=== PATIENT | female | born 1995 | race Caucasian/White ===

== ENCOUNTER 2017-05-15 11:16 | Emergency (ER) | payer BC, OTHER ==
[~2017-05-15] VITALS: Ht 167.6 cm; Wt 61.2 kg
[2017-05-15] MEDS ORDERED: ENPRESSE PO (11:49)
--- NOTE | 2017-05-15 11:58 | Emergency Room Report ---
See Addendum History of Present Illness Time Seen by MD Garcia Presenting Problem in Triage Pt arrived: Presenting Problem: Onset of symptoms date/time:/ or onset unknown for: Treatment Prior to Arrival: [employer] Provided by: Sepsis Risk Assessment: Temp: B/P: MAP: Pulse: Resp: Recent fever? Clinical Suspician of Infection? Mental Status: Sepsis Risk: Have you (or family members/close friends) recently traveled outside the [place]? If Yes, where/when: Have you had exposure to infectious disease within the past month? TB? Other? Specify: Source patient, RN notes reviewed Exam Limitations no limitations Comment Pt is a 21 yo WF who is on BCP and for the past 3 weeks has had a cough that was felt to be viral and recently treated with some cough medicine that has helped but over the past 2 to 3 days she has had some low grade fever and diarrhea. Also some stomach cramps but no vomiting . She does not smoke nor drink nor use drugs but is on BC. She has been tachycardic as well Cardiac Chest Pain Chest pain indicative of cardiac No ALLERGIES Coded Allergies: No Known Allergies (05/15/17) Home Medications Reported Medications LEVONORGESTREL-ETHIN ESTRADIOL (Enpresse-28 Tablet) 1 TAB PO DAILY #84 History Medical History Surgical Hx Previous Surgery?Y L ANKLE Review of Systems All Other Systems Reviewed and Negative Constitutional see HPI Cardiovascular see HPI Genitourinary no symptoms reported. Physical Exam Vital Signs Vital Signs Date Time Temp Pulse Resp B/P Pulse O2 O2 Flow FiO2 Ox Delivery Rate 05/15 1304 98.7 96 20 117/72 99 05/15 1130 98.8 128 20 133/88 99 - WBC >12,000 or <4,000 or 10% bands? 2 or more SIRS Criteria Met? B/P:133/88 MAP:103 Creatinine >2.0? UA output<0.5ml/kg/hr for 2 hrs? Platelet count >100,000? Lactate >2.0mmol/1? INR >1.2 or PTT > than 60 sec? Evidence of Organ Dysfunction? Provider documented clinical suspician of infection? N Sepsis Criteria Count: 2 Sepsis Risk: Severe Sepsis Risk General Appearance normal appearance, WD/WN, no apparent distress Ear, Nose, Throat dry mucous membranes Respiratory Status No: respiratory distress. Lung Sounds bilateral: normal breath sounds. 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 No Results/Orders Laboratory Tests 05/15/17 1205: TSH 1.74, Free T4 Index 12.8, Thyroxine (T4) 15.6 H, T3 Uptake 33 05/15/17 1205: Amylase 44, Lipase 265 05/15/17 1205: Sodium 139, Potassium 3.5, Chloride 105, Carbon Dioxide 27, BUN 8, Creatinine 0.9, Estimated Creat Clear 96, Estimated GFR (MDRD) 79, Glucose 88, Calcium 8.9, Total Bilirubin 0.4, AST 24, ALT 28, Alkaline Phosphatase 44 L, Total Protein 8.1, Albumin 3.8, Globulin 4.3 H, Albumin/Globulin Ratio 0.9 L, WBC 6.6, RBC 4.33, Hgb 13.7, Hct 39.9, MCV 92.1, RDW 12.0, Plt Count 269, MPV 7.9, Gran % 81.3 H, Gran # 5.3, Lymphocytes % 12.4, Monocytes % 5.4, Eosinophils % 0.6, Basophils % 0.2, Lymphocytes # 0.8, Monocytes # 0.4, Eosinophils # 0.0, Basophils # 0.0, PUBS MCHC 34.4, MCH 31.7 H 05/15/17 1150: Urine Color DK YELLOW, Urine Appearance SL CLOUDY, Urine pH 7.0, Ur Specific [place] 1.010, Urine Protein TRACE H, Urine Ketones NEGATIVE, Urine Blood 1+ H , Urine Nitrate NEGATIVE, Urine Bilirubin NEGATIVE, Urine Urobilinogen 1.0, Ur Leukocyte Esterase NEGATIVE, Urine RBC OCC, Urine WBC 5-10, Urine Bacteria 4+, Urine Mucus 4+, Urine Glucose NEGATIVE 05/15/17 0600: Urine Color Cancelled, Urine Appearance Cancelled, Urine pH Cancelled, Ur Specific [place] Cancelled, Urine WBC Cancelled, Ur Squamous Epith Cells Cancelled, Urine Bacteria Cancelled Current Medication Orders Sig/Laura Start time Last Medication Dose Route Stop Time Status Admin Ceftriaxone Sodium 1 GM ONCE ONE 05/15 1330 AC Sodium Chloride 50 ML IV 05/15 1359 Ceftriaxone Sodium 0 .STK-MED ONE 05/15 1329 DC .ROUTE Sodium Chloride 100 ML .STK-MED ONE 05/15 1329 DC IV Sodium Chloride 1,000 ML .STK-MED ONE 05/15 1204 DC IV Sodium Chloride 10 ML PRN PRN 05/15 1200 AC IV 05/16 1150 Sodium Chloride 1,000 ML .Q1H1M 05/15 1200 DC 05/15 IV 05/15 1300 1211 Sodium Chloride 10 ML PRN PRN 05/15 1200 AC IV 05/16 1155 Sodium Chloride 1,000 ML .Q1H1M 05/15 1200 DC IV 05/15 1300 Sodium Chloride 10 ML PRN PRN 05/15 1200 AC IV 05/16 1156 Orders Procedure Date/time Status DIARRHEA PANEL, PCR 05/15 1156 Active CULTURE, BLOOD 05/15 1155 Active THYROID PANEL 2 (WITH TSH) 05/15 1153 Complete LIPASE 05/15 1151 Complete AMYLASE 05/15 1151 Complete IV SALINE LOCK 05/15 1150 Active CULTURE, URINE 05/15 1150 Active URINALYSIS/COMPLETE 05/15 1150 Complete URINE 05/15 1150 Complete CBC WITH AUTO DIFF 05/15 1150 Complete CHEM 12 PROFILE 05/15 1150 Complete Departure Departure Time of Disposition 1325 Disposition DC Home or Self Care(routine) Clinical Impression Primary Impression: Cystitis without hematuria Secondary Impressions: Hyperthyroidism Condition STABLE Referrals Luther Schafer MD (Family): 2 Days-Call Office Patient Instructions Acute Cystitis, DI for Acute Cystitis, DI for Hyperthyroidism, DI for Radioactive Iodine for Treating Hyperthyroidism, Hyperthyroidism, Hyperthyroidism (Alternative Therapy), Radioactive Iodine Treatment Additional Instructions Pt being started on Amoxicillin 500 mg TID for UTI and instructed to followup with PCP in 2 to 3 days to recheck urine but to also do other testing to see what the cause of her Hyperthyroidism is. If her Diarrhea Panel is positive for anything, I will call her with those results. Discharge Counseling Counseled pt/family regarding diagnosis, test results, medications/RX, home care, follow up needs Prescriptions Current Visit Scripts Amoxicillin (Amoxicillin 500MG) 500 MG PO TID #30 CAP ED Critical Care Critical Care No If Critical Care minutes are documented, the time involved in the performance of seperately reportable procedures was not counted toward critical care time documented. I directly delivered medical care to this critically ill and/or injured patient. Timely evaluation and treatment was necessary to address the significant organ system(s) dysfunction present in this patient. at 1339
[2017-05-15 12:00] LABS: URINE BILIRUBIN - DIPSTICK NEGATIVE (NEG); URINE BLOOD 1+ (NEG)
[2017-05-15 12:21] LABS: HEMOGLOBIN 13.7 g/dL (12.2-16.2); LYMPH # 0.8 K/mm3 (0.7-4.5); LYMPH % 12.4 % (10-50.0)
[2017-05-15 12:40] LABS: FREE THYROXIN INDEX 12.8 ug/dl (5.93-13.13)
[2017-05-15] MEDS ORDERED: AMOXICOT500 MG PO (13:29)
[2017-05-15 13:56] LABS: AEROMONAS NOT DETECTED (NOT DETECTE); ASTROVIRUS NOT DETECTED (NOT DETECTE); CYCLOSPORA CAYETANENSIS NOT DETECTED (NOT DETECTE); E COLI O157 NOT DETECTED (NOT DETECTE); ENTEROAGGREGATIVE E COLI NOT DETECTED (NOT DETECTE); ENTEROPATHOGENIC E COLI NOT DETECTED (NOT DETECTE); ENTEROTOXIGENIC E COLI NOT DETECTED (NOT DETECTE); NOROVIRUS NOT DETECTED (NOT DETECTE); SAPOVIRUS NOT DETECTED (NOT DETECTE); SHIGA-LIKE TOXIN PROD. E COLI NOT DETECTED (NOT DETECTE); SHIGELLA/ENTEROINVASIVE E COLI NOT DETECTED (NOT DETECTE); VIBRIO CHOLERAE NOT DETECTED (NOT DETECTE)
[2017-05-15 15:30] VITALS: BP 108/63
--- OUTSIDE RECORDS SUMMARY | 2017-05-16 03:41 | External Medical Summary Rpt | CCD ---
Author Author , DIAZ Organization DIAZ Address Unknown Phone [email or web address] Providers Care Relationship Advisor Name Role Phone ANESTHESIA Unavailable [facility]available [facility], Unavailable Unavailable [facility] CHAVA BRE, CHAVA Unavailable Unavailable [facility] Unavailable Unavailable [facility], Unavailable Unavailable [id number], Unavailable Unavailable [id number] Unavailable Unavailable [facility] Unavailable Unavailable DUDEE CORBIN, DUDEE CORBIN Unavailable Unavailable DUDEE CORBIN, DUDEE CORBIN Unavailable Unavailable DUDEE JITANDER S, Unavailable Unavailable DUDEE, JITANDER S Alla PENG, GINETTE G Unavailable Unavailable T MACEY LOPEZ Unavailable Unavailable ALEC NORIEGA Unavailable Unavailable [facility] Unavailable Unavailable [facility] Unavailable Unavailable [facility], [facility] Unavailable Unavailable [facility], [facility] GRABMAYER MASON, Unavailable Unavailable GRABMAYER MASON KINGS MAJANO, Unavailable Unavailable ARIANA YOUNG, Unavailable Unavailable ARIANA KU HODOSBALDO SIRENA, HODDY SIRENA Unavailable Unavailable KATHIE PACK, HODDY SIRENA Unavailable Unavailable MARISELA VÁZQUEZ, Unavailable Unavailable MARISELA VÁZQUEZ [facility] [employer] [facility] Unavailable Unavailable INC, [facility] Unavailable Unavailable [facility], [facility], Unavailable Unavailable [facility] & Unavailable Unavailable [facility] VIPUL KRI, VIPUL KRI Unavailable Unavailable VIPUL KRI, VIPUL KRI Unavailable Unavailable KELLI MATTHEW, Unavailable Unavailable VIPUL, KELLI K LLUVIA CHARLES, LLUVIA Unavailable Unavailable CHARLES LLUVIA CHARLES, LLUVIA Unavailable Unavailable CHARLES LLUVIA, JOHN S, Unavailable Unavailable LLUVIA, JOHN S FREDDY LENNY, Unavailable Unavailable FREDDY LENNY FREDDY LENNY, Unavailable Unavailable FREDDY LENNY FREDDY, LENNY N, Unavailable Unavailable FREDDY, LENNY N [facility] MONTES KIRILL, Unavailable Unavailable MONTES KIRILL MONTES KIRILL, Unavailable Unavailable MONTES KIRILL RIEBEL CHARLES, RIEBEL Unavailable Unavailable CHARLES RIEBEL CHARLES, RIEBEL Unavailable Unavailable CHARLES RIEBEL, JOHN S, Unavailable Unavailable RIEBEL, JOHN S RODES ARMEN, RODES ARMEN Unavailable Unavailable RODES ARMEN, RODES ARMEN Unavailable Unavailable LANE DEBRA, Unavailable Unavailable LANE DEBRA SWEIGART LAC, Unavailable Unavailable SWEIGART LAC SWEIGART LAC, Unavailable Unavailable SWEIGART LAC SAVANAH NANNETTE, SAVANAH NANNETTE Unavailable Unavailable SAVANAH NANNETTE, SAVANAH NANNETTE Unavailable Unavailable [facility], Unavailable Unavailable [facility] Unavailable Unavailable [facility], [facility] # Unavailable Unavailable [id number], [facility] # [id number] [id number], Unavailable Unavailable [id number] SAM BRIDGES, Unavailable Unavailable SAM BRIDGES Purpose Continuity of Care Document - 08-10-2007 through 2016 Problems Code Diagnosis DOS Provider Status K29.50 UNSPECIFIED 11-17-2016 CHRONIC GASTRITIS WITHOUT BLEEDING K59.00 CONSTIPATIO 11-17-2016 N, UNSPECIFIED R10.13 EPIGASTRIC 11-17-2016 PAIN R10.9 UNSPECIFIED 10-21-2016 ABDOMINAL PAIN 56875 GENERALIZED 03-13-2014 [facility] DISORDER PSC 7061 OTHER ACNE 03-06-2014 [facility] PSC 7821 RASH AND 03-06-2014 [facility] OTHER PEDI[facility]ICS NONSPECIFIC PSC SKIN ERUPTION V700 ROUTINE 12-26-2013 [facility] GENERAL [facility] MEDICAL PSC EXAM@HEALTH CARE FACL 58025 OTOGENIC 11-23-2013 [facility] PAIN LAC 460 ACUTE 11-23-2013 [facility] NASOPHARYNG LAC ITIS 5362 PERSISTENT 11-23-2013 [facility] VOMITING LAC 25053 NAUSEA 11-23-2013 [facility] ALONE LAC 4658 ACUTE URIS 10-17-2013 FREDDY OF OTHER LENNY MULTIPLE SITES 7862 COUGH 10-17-2013 FREDDY LENNY 9210 BLACK EYE, 09-12-2013 JYOTI NOT KIRILL OTHERWISE SPECIFIED 3688 OTHER 09-09-2013 FREDDY SPECIFIED LENNY VISUAL DISTURBANCE S 9181 SUPERFICIAL 09-09-2013 FREDDY INJURY OF LENNY CORNEA 9189 OTHER&UNSPE 09-09-2013 FREDDY CIFIED LENNY SUPERFICIAL INJURIES OF EYE 81333 SLOW 07-31-2013 [facility] TRANSIT [facility] CONSTIPATIO [facility] N 56161 ABDOMINAL 07-31-2013 [facility] PAIN, [facility]ED[facility]RICS UNSPECIFIED PSC SITE 7830 ANOREXIA 06-22-2013 RIEBEL CHARLES 83018 ABDOMINAL 06-22-2013 RIEBDIONISIO SOTO PAIN, GENERALIZED 13723 ACUT 05-31-2013 LLUVIA CHARLES SUPPRATV OTITIS MEDIA W/O SPONT RUP EARDRUM 65307 CHILLS 05-31-2013 LLUVIA CHARLES WITHOUT FEVER 29019 OTHER 05-31-2013 LLUVIA CHARLES MALAISE AND FATIGUE 7840 HEADACHE 05-31-2013 LLUVIA CHARLES V0481 NEED 05-17-2013 ANISA SOTO PROPHYLACTI C VACCINATION &INOCULATIO N FLU 72536 SHORTNESS 05-03-2013 [facility] 41272 CHEST PAIN 05-03-2013 [facility] 86738 PRECORDIAL 04-27-2013 LLUVIA CHARLES PAIN 4618 OTHER ACUTE 03-30-2013 LLUVIA CHARLES SINUSITIS 462 ACUTE 03-30-2013 LLUVIA CHARLES PHARYNGITIS 73600 FEVER 03-30-2013 LLUVIA CHARLES UNSPECIFIED 59955 SLOWING OF 03-16-2013 LLUVIA CHARLES URINARY STREAM 6253 DYSMENORRHE 01-17-2013 SAVANAH NANNETTE A 6262 EXCESSIVE 01-17-2013 SAVANAH NANNETTE OR FREQUENT MENSTRUATIO N 6264 IRREGULAR 01-17-2013 SAVANAH NANNETTE MENSTRUAL CYCLE 51749 ONYCHIA AND 01-16-2013 RODES ARMEN PARONYCHIA OF TOE 7038 OTHER 01-16-2013 RODES ARMEN SPECIFIED DISEASE OF NAIL 6898 PAIN IN 01-16-2013 RODES ARMEN SOFT TISSUES OF LIMB 9243 CONTUSION 01-16-2013 RODES ARMEN OF TOE 95736 OTHER CHEST 11-28-2012 [facility] PAIN [facility] 17716 ABDOMINAL 11-28-2012 [facility]IN, [facility] V0389 NEED PROPH 11-21-2012 VIPUL BAZAN VACC AGAINST OTH SPEC VACC V202 ROUTINE 11-21-2012 VIPUL BAZAN INFANT OR CHILD HEALTH CHECK V6545 COUNSELING 11-09-2012 SAVANAH NANNETTE OTHER SEXUALLY TRANSMITTED DISEASES 3671 MYOPIA 09-22-2012 DUDEE CORBIN 7030 INGROWING 06-28-2012 VIPUL BAZAN NAIL 0340 STREPTOCOCC 04-13-2012 LLUVIA ECHEVERRIA SORE THROAT V061 NEED PROPH 11-20-2011 VIPUL SUSUI VAC W/COMB DIPHTH-TETA NUS-PERTUSS VAC 27968 PAIN IN 11-01-2011 [facility] ANKLE AND HOSPITAL FOOT V4589 OTHER 11-01-2011 [facility] OTHER V571 OTHER 11-01-2011 [facility] 6918 OTHER 10-30-2011 [facility] ATOPIC LENNY DERMATITIS AND RELATED CONDITIONS 92644 DIARRHEA 10-30-2011 FREDDY LENNY 66008 OTHER JOINT 09-22-2011 [facility] DERANGEMENT PSC NEC ANKLE AND FOOT 36965 OTHER 09-22-2011 [facility], OF BONE AND PSC CARTILAGE OTHER 48949 UNSPECIFIED 07-03-2011 SAVANAH NANNETTE VAGINITIS AND VULVOVAGINI TIS 23682 ABDOMINAL 07-03-2011 SAVANAH NANNETTE PAIN RIGHT LOWER QUADRANT 67117 ABDOMINAL 07-03-2011 SAVANAH NANNETTE PAIN, LEFT LOWER QUADRANT 8360 TEAR MEDIAL 06-24-2011 [facility] CARTILAGE OR MENISCUS KNEE CURRENT 65731 OTHER SLEEP 06-17-2011 RICHRISTOPHER CHARLES DISTURBANCE S 23123 ACUTE 11-25-2010 [facility] ATOPIC [facility] CONJUNCTIVI PSC TIS 79872 ESOPHAGEAL 11-25-2010 [facility] REFLUX [facility]ED[facility]RICS PSC 32290 UNSPECIFIED 08-21-2010 [facility] ACUTE [facility] NONSUPPURAT PSC KYLE OTITIS MEDIA 46947 OTHER JOINT 08-02-2010 [facility] DERANGEMENT PSC NEC LOWER LEG 4739 UNSPECIFIED 05-27-2010 [facility] SINUSITIS [facility]EDIATRICS PSC 3670 HYPERMETROP 04-15-2010 [place] [address] SUPPRESSION 04-15-2010 DUDEE CORBIN OF BINOCULAR VISION 88321 CONTACT AND 04-15-2010 DUDEE CORBIN ALLERGIC DERMATITIS OF EYELID 04005 MIGRAINE 04-02-2010 [facility] UNSP W/O PEDIATRICS INTRACT W/O PSC STATUS MIGRAINOSUS 98014 OTHER 12-19-2009 [facility] CHRONIC [facility] PAIN PSC 4779 ALLERGIC 11-12-2009 [facility] RHINITIS [facility]ED[facility]RICS CAUSE PSC UNSPECIFIED V059 NEED PROPH 11-12-2009 [facility] VACC&INOCUL PEDIATRICS AT [facility] PSC UNSPEC SINGLE DZ 7242 LUMBAGO 11-04-2009 [facility] [place] [facility] 7245 UNSPECIFIED 11-04-2009 [facility] BACKACHE [facility] 4659 ACUTE URIS 10-09-2009 [facility] OF PEDIATRICS UNSPECIFIED PSC SITE 463 ACUTE 09-18-2009 [facility] TONSILLITIS PEDIATRICS PSC 20487 SPRAIN AND 07-27-2009 [facility] OF N EMERGENCY UNSPECIFIED PHYS INC SITE OF WRIST E9278 OTH 07-27-2009 [facility] OVEREXERT&S N EMERGENCY TRENUOUS&RE PHYS INC PETITIVE MVMNTS/LOAD S 7336 TIETZES 07-03-2009 [facility] DISEASE [facility]ATRICS PSC 79057 OTHER 05-08-2009 [facility] INJURY OF PEDIATRICS OTHER SITES PSC OF TRUNK 4871 INFLUENZA 04-05-2009 [facility] WITH OTHER PEDIATRICS RESPIRATORY PSC MANIFESTATI ONS 87615 HYPERVENTIL 11-28-2008 [facility] ATION PEDIATRICS PSC 6260 ABSENCE OF 11-19-2008 [facility] MENSTRUATIO PEDIATRICS N PSC V054 NEED PROPH 11-02-2008 [facility] VACC&INOCUL PEDIATRICS AT AGAINST PSC VARICELLA 11950 PAIN IN 10-15-2008 [facility] [place] [facility], [facility]THOPAEDIC LOWER LEG S [facility] 14025 EFFUSION OF 10-11-2008 [facility] LOWER LEG [facility] 8449 SPRAIN&STRA 02-29-2008 [facility] IN OF PEDIATRICS UNSPECIFIED PSC SITE OF KNEE&LEG 01917 UNS 10-06-2007 [facility] GASTRITIS&G PEDIATRICS ASTRODUODIT PSC IS W/O MENTION HEMORR 35362 UNSPECIFIED 10-06-2007 [facility] CONSTIPATIO PSC N 6235 LEUKORRHEA 09-16-2007 [facility] NOT [place] INC SPECIFIED INFECTIVE 7010 CIRCUMSCRIB 09-16-2007 [facility] ED [facility]EDI[facility]ICS SCLERODERMA PSC 8441 SPRAIN AND 08-12-2007 J & L STRAIN OF COMPOUNDING MCL OF KNEE INC Medications Na ND Rx Da Fi Fi Am Da Di Ph RX Ph St me C No te ll ll ou ys ag ar # ys at rm s nt no ma ic us Or Da si cy ia de te s n re d CE 68 05 05 0 20 10 WA 70 BA Ac PH 18 -2 -2 .0 L- 79 DG ti AL 00 0- 0- 00 MA 27 ER ve EX 12 20 20 RT 3 IN 20 11 11 BR 1 PH IA 50 AR N 0 MA C MG CY # CA PS 10 UL 04 E 93 CA 37 04 04 1 30 30 WA 88 QU Ac IL 00 -2 -2 .0 L- 17 AC ti OS 00 6- 6- 00 MA 14 KE ve EC 45 20 20 RT 5 NB 50 11 11 US OT 4 PH H C AR AN 20 MA N .6 CY N # MG 10 TA 04 BL 93 ET PA 00 04 04 2 2. 30 WA 70 QU Ac TA 06 -2 -2 50 L- 76 AC ti DA 50 6- 6- 0 MA 13 KE ve Y 27 20 20 RT 1 NB 0. 22 11 11 US 2% 5 PH H AR AN EY MA N E CY N DR # OP S 10 04 93 TA 00 03 03 0 10 10 WA 70 KE[place]NEY Ac TN 00 -0 -0 .0 L- 68 MB ti FL 40 1- 1- 00 MA 78 RI ve U 80 20 20 RT 8 CK 75 08 11 11 5 PH HO MG AR RA MA CE CA CY P PS # UL E 10 04 93 AN 43 01 01 0 15 1 WA 70 OL Ac TI 19 -2 -2 .0 L- 63 IV ti PY 90 0- 0- 00 MA 18 ER ve RI 01 20 20 RT 8 NE 61 11 11 JE -B 5 PH NN EN AR IF ZO MA ER CA CY S IN # E EA [address] 93 OP CA 68 11 11 1 8. 2 WA 70 HO Ac OM 38 -2 -2 00 L- 56 DD ti ET 20 6- 6- 0 MA 40 Y ve KEANREY 04 20 20 RT 9 DA ZI 10 10 10 NE 1 PH D AR M 25 MA CY MG # TA 10 BL 04 ET 93 00 10 10 2 30 30 WA 88 HO Ac 78 -1 -1 .0 L- 16 DD ti 15 1- 1- 00 MA 04 Y ve 07 20 20 RT 4 DA 77 10 10 6 PH D AR M MA CY # 10 04 93 SOLIS 55 09 09 0 9. 30 WA 70 OL Ac MA 11 -0 -0 00 L- 46 IV ti TR 10 1- 6- 0 MA 26 ER ve IP 29 20 20 RT 4 TA 20 10 10 JE N 9 PH NN SOLIS AR IF CC MA ER CY S 50 # MG 10 04 TA 93 BL ET CA 64 09 09 1 30 30 WA 70 OL Ac EV 76 -0 -0 .0 L- 46 IV ti AC 40 1- 6- 00 MA 26 ER ve ID 04 20 20 RT 5 [address] 3 PH NN AR IF 30 MA ER CY S MG # CA 10 PS 04 UL 93 E FL 00 09 09 2 16 30 WA 70 OL Ac UT 05 -0 -0 .0 L- 46 IV ti IC 43 1- 6- 00 MA 26 ER ve 27 20 20 RT 6 ON 10 10 JE E 9 PH NN CA AR IF OP MA ER CY S 50 # MC 10 G 04 SP 93 RA Y 00 09 09 0 30 30 WA 88 OL Ac 78 -0 -0 .0 L- 15 IV ti 15 1- 6- 00 MA 83 ER ve 07 20 20 RT 0 77 10 10 JE 6 PH NN AR IF MA ER CY S # 10 04 93 66 05 05 2 30 15 WA 70 OL Ac 99 -2 -2 .0 L- 34 IV ti 20 0- 0- 00 MA 34 ER ve 23 20 20 RT 6 56 10 10 JE 0 PH NN AR IF MA ER CY S # 10 04 93 FL 00 05 05 2 16 30 WA 70 OL Ac UT 05 -2 -2 .0 L- 34 IV ti IC 43 0- 0- 00 MA 34 ER ve 27 20 20 RT 5 ON 10 10 JE E 9 PH NN CA AR IF OP MA ER CY S 50 # MC 10 G 04 SP 93 RA Y CA 64 04 04 2 30 30 WA 70 OL Ac EV 76 -2 -2 .0 L- 31 IV ti AC 40 8- 8- 00 MA 73 ER ve ID 04 20 20 RT 6 [address] 3 PH NN AR IF 30 MA ER CY S MG # CA 10 PS 04 UL 93 E 59 03 03 0 12 6 WA 70 BA Ac 70 -1 -1 0. L- 26 DG ti 20 0- 1- 00 MA 02 ER ve 80 20 20 0 RT 4 01 10 10 BR 6 PH IA AR N MA C CY # 10 04 93 BE 68 03 03 0 20 6 WA 70 HO Ac NZ 38 -1 -1 .0 L- 26 DD ti ON 20 0- 0- 00 MA 02 Y ve AT 24 20 20 RT 5 DA AT 80 10 10 E 1 PH D 20 AR M 0 MA MG CY # CA PS 10 UL 04 E 93 PA 00 02 02 00 2. 20 WA 70 OL Ac TA 06 -1 -2 50 L- 23 IV ti DA 50 7- 6- 0 MA 19 ER ve Y 27 20 20 RT 0 0. 22 10 10 JE 2% 5 PH NN AR IF EY MA ER E CY S DR OP #4 S 93 RA 00 01 01 00 60 30 WA 70 KE[place]NEY Ac NI 17 -2 -2 .0 L- 19 MB ti TI 24 1- 8- 00 MA 88 RI ve DI 35 20 20 RT 0 CK NE 74 10 10 9 PH HO 15 AR RA 0 MA CE MG CY P TA #4 BL 93 ET HY 51 10 10 00 30 20 WA [address] 67 -0 -2 .0 L- 06 MB ti OC 21 7- 2- 00 MA 88 RI ve OR 29 20 20 RT 7 CK TI 00 09 09 SO 1 PH HO NE AR RA MA CE VA CY P L 0. #4 2% 93 CR EA M LO 00 08 09 00 30 30 CV 52 HO Ac RA 78 -2 -1 .0 S 43 DD ti TA 15 8- 0- 00 PH 51 Y ve DI 07 20 20 AR DA NE 70 09 09 MA 1 CY D 10 M #3 MG 01 6 TA BL ET BE 68 09 09 00 20 6 WA 70 BA Ac NZ 38 -0 -1 .0 L- 02 DG ti ON 20 4- 0- 00 MA 94 ER ve AT 24 20 20 RT 4 AT 80 09 09 BR E 1 PH IA 20 AR N 0 MA C MG CY CA #4 PS 93 UL E 68 04 05 00 60 30 WA 69 HO Ac 04 -2 -0 .0 L- 86 DD ti 70 1- 7- 00 MA 95 Y ve 16 20 20 RT 2 DA 50 09 09 1 PH D AR M MA CY #4 93 FL 00 04 04 00 16 30 WA 69 OL Ac UT 05 -0 -0 .0 L- 84 IV ti IC 43 3- 9- 00 MA 85 ER ve 27 20 20 RT 6 ON 09 09 09 JE E 9 PH NN CA AR IF OP MA ER CY S 50 #4 MC 93 G SP RA Y LO 00 04 04 00 30 30 WA 88 OL Ac RA 78 -0 -0 .0 L- 13 IV ti TA 15 3- 9- 00 MA 24 ER ve DI 07 20 20 RT 2 NE 70 09 09 JE 1 PH NN 10 AR IF MA ER MG CY S TA #4 BL 93 ET TO 00 02 02 00 3. 15 CV 50 DU Ac BR 06 -1 -2 50 S 20 DE ti EX 50 4- 6- 0 PH 18 E ve 64 20 20 AR JI 0. 43 09 09 MA TA 3% 5 CY ND ER EY #3 S E 01 OI 6 NT ME NT 68 04 04 00 40 20 WA 69 No Ac 04 -1 -2 .0 L- 44 t ti 70 7- 4- 00 MA 61 Av ve 16 20 20 RT 2 ai 50 08 08 la 1 PH bl M e 10 -0 49 3 RA 00 03 04 00 60 30 CV 46 No Ac NI 17 -0 -0 .0 S 42 t ti TI 24 6- 7- 00 PH 58 Av ve DI 35 20 20 AR ai NE 74 08 08 MA la 9 CY bl 15 e 0 #3 MG 01 6 TA BL ET PO 62 03 04 00 51 30 CV 46 No Ac LY 17 -0 -0 0. S 42 t ti ET 50 6- 7- 00 PH 59 Av ve HY 44 20 20 0 AR ai LE 21 08 08 MA la NE 5 CY bl e GL #3 YC 01 OL 6 33 50 PO WD 00 02 03 00 30 30 CV 46 No Ac 59 -1 -2 .0 S 15 t ti 15 5- 6- 00 PH 65 Av ve 52 20 20 AR ai 30 08 08 MA la 1 CY bl e #3 01 6 HY 00 02 03 00 30 14 CV [address] 16 -1 -2 .0 S 15 t ti OC 80 5- 6- 00 PH 66 Av ve OR 08 20 20 AR ai TI 03 08 08 MA la SO 1 CY bl NE e #3 2. 01 5% 6 CR EA M 60 01 03 00 60 30 WA 69 No Ac 25 -2 -2 .0 L- 34 t ti 80 3- 5- 00 MA 62 Av ve 28 20 20 RT 7 ai 30 08 08 la 1 PH bl M e 10 -0 49 3 FL 68 01 03 00 2. 7 CV 45 No Ac UC 46 -1 -2 00 S 81 t ti ON 20 9- 5- 0 PH 94 Av ve AZ 10 20 20 AR ai OL 34 08 08 MA la E 0 CY bl 15 e 0 #3 MG 01 6 TA BL ET FL 68 01 03 00 2. 2 CV 45 No Ac UC 46 -0 -2 00 S 69 t ti ON 20 9- 4- 0 PH 82 Av ve AZ 10 20 20 AR ai OL 34 08 08 MA la E 0 CY bl 15 e 0 #3 MG 01 6 TA BL ET Immunization Name Date Rout CVX Reac Dose Comm Prov Is Faci e tion ent ider Refu lity Give sed n IIV3 10-1 141 RIEB No RIEB 6-20 EL EL VACC 13 CHARLES INE SPLI T VIRU CHARLES S 0.5 ML DOSA GE IM USE MCV4 04-2 114 Meni MENK No MENK 2-20 bita E E DE SOUZA 13 occu KRI CWY s CONJ vacc ine VACC admi KRI nist GRPS ered ; ACYW form -135 ulat IM ion USE not spec ifie d. MCV4 04-2 136 Meni MENK No MENK 2-20 bita E E DE SOUZA 13 occu KRI CWY s CONJ vacc ine VACC admi KRI nist GRPS ered ; ACYW form -135 ulat IM ion USE not spec ifie d. TDAP 04-2 115 MENK No MENK 0-20 E E VACC 12 KRI INE 7 YRS/ > IM KRI IIV3 11-1 140 RIEB No RIEB 6-20 EL EL VACC 11 CHARLES PRES ERVA TIVE CHARLES FREE 0.5 ML DOSA GE IM USE 4VHP 04-1 62 OLIV No GEOR V 3-20 ER, GETO VACC 10 LATISHA WN INE IFER PEDI 3 S ATRI DOSE CS PSC SCHE DULE FOR IM USE LAIV 10-0 111 HAMB No GEOR 3 7-20 SHELLEY GETO VACC 09 , WN INE HORA PEDI LIVE CE P ATRI FOR CS PSC INTR ANAS AL USE 4VHP 06-2 62 HAMB No GEOR V 3-20 SHELLEY GETO VACC 09 , WN INE HORA PEDI 3 CE P ATRI DOSE CS PSC SCHE DULE FOR IM USE 4VHP 04-0 62 OLIV No GEOR V 3-20 ER, GETO VACC 09 LATISHA WN INE IFER PEDI 3 S ATRI DOSE CS PSC SCHE DULE FOR IM USE FAWAD 04-0 21 OLIV No GEOR VACC 3-20 ER, GETO INE 09 LATISHA WN LIVE IFER PEDI FOR S ATRI CS SUBC PSC UTAN EOUS USE LAIV 01-2 111 RIEB No GEOR 3 3-20 EL, GETO VACC 09 LATISHA WN INE IFER PEDI LIVE S ATRI FOR CS PSC INTR ANAS AL USE Procedures Procedure DOS Code Location Performer Comment SERVICES 05012 QUACKENBU QUACKENBU PROVIDED 4 SH LENNY LENNY OFFICE OTH/THN REG SCHED HOURS RADEX 40238 [facility] ABDOMEN 1 3 N N [facility] AN[facility]OPOS [facility] HOSPITA TERIOR VIEW IIV3 80168 RIEBEL RIEBEL VACCINE 3 CHARLES CHARLES SPLIT VIRUS 0.5 ML DOSAGE IM USE ECG 07747 [facility] MCALLEN ROUTINE 3 Y Y ECG [facility] W/LEAST 12 LDS TRCG ONLY W/O I&R ECG [address] ROUTINE 3 DEBRA DEBRA ECG W/LEAST 12 LDS I&R ONLY ECHO [address] TTHRC R-T 3 DEBRA DEBRA 2D W/WOM-MOD E COMPL SPEC&[place] [address] LAB S[facility] LAB SELINA FREE 3 [facility] [place] [address] LAB [facility] LAB SELINA THYROID 3 TONG TONG STIMULATI HOLDINGS HOLDINGS NG HORMONE TSH SPMTRY 79642 [facility] LLUVIA W/VC 3 CHARLES CHARLES EXPIRATOR Y MORENA W/WO MXML VOL VNTJ BLOOD 92877 LAB [facility] LAB SELINA COUNT 3 TONG TONG COMPLETE HOLDINGS HOLDINGS AUTO&AUTO DIFRNTL WBC IAADIADOO 07211 LL[facility] LLUVIA 3 CHARLES CHARLES STREPTOCO CCUS GROUP A URNLS DIP 88443 LL[facility]IA LLUVIA 3 CHARLES CHARLES STICK/TAB LET RGNT NON-AUTO W/O MICRSCP EXCISION 05176 RODES ARMEN RODES ARMEN NAIL 3 MATRIX PERMANENT REMOVAL COMPREHEN 97417 [facility] SIVE 3 N N METABOLIC [facility] COMMUNITY PANEL HOSPITA HOSPITA RADIOLOGI 87458 [facility] C EXAM 3 N N CHEST 2 COMMUNITY [facility] VIEWS HOSPITA HOSPITA [place]ONTAL&[place] [address] [facility] LIPASE 3 N N [facility] HOSPITA HOSPITA BLOOD 99317 [facility] COUNT 3 N N COMPLETE [facility] AUTO&AUTO HOSPITA HOSPITA DIFRNTL WBC COLLECTIO 53503 [facility] N VENOUS 3 N N BLOOD [facility] VENIPUN[place] [address] [facility] AMYLASE 3 N N [facility] HOSPITA HOSPITA ECG 41691 MACEY CHOUDHURY ROUTINE 3 GOPAL GOPAL ECG W/LEAST 12 LDS I&R ONLY MCV4 12224 VIPUL KRI VIPUL KRI MENACWY 3 CONJ VACC GRPS ACYW-135 IM USE URNLS DIP 82514 QUACKENBU QUACKENBU 3 SH LENNY SH LENNY STICK/TAB LET RGNT NON-AUTO W/O MICRSCP OPHTH 41000 DUDEE CORBIN DU[facility]E COR[facility] MEDICAL 3 XM&EVAL COMPRHNSV ESTAB PT 1/> FITTING 87446 [facility] COR[facility] DUDEE CORBIN SPECTACLE 3 S XCPT APHAKIA MONOFOCAL DETERMINA 64574 [facility] COR[facility]E [facility] TION 3 REFRACTIV E STATE FRAMES V2020 [facility] COR[facility] PURCHASES 3 1 VISN V2103 DU[facility]E CORBIN DUDEE CORBIN PLANO 3 TO+/-4.00 D SPHER 0.12-2.00 D CYL EA LENS V2784 [facility] COR[facility] POLYCARBO 3 CHLOE OR EQUAL ANY INDEX PER LENS IAADIADOO 75166 VIPUL KRI VIPUL KRI 2 STREPTOCO CCUS GROUP A EXCISION 88695 RODES ARMEN RODES ARMEN NAIL 2 MATRIX PERMANENT REMOVAL IAADIADOO 02754 LLUVIA TEIXEIRA 2 CHARLES CHARLES STREPTOCO CCUS GROUP A AVULSION 07924 HODDY SIRENA HODDY SIRENA NAIL 2 PLATE PARTIAL/C OMPLETE SIMPLE 1 COMPREHEN 57247 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 SIVE 2 Y & Y & METABOLIC BIODIAGNO BIODIAGNO PANEL STICS STICS ANTIBODY 75615 LABORATOR LABORATOR HELICOBAC 2 Y & Y & TER BIODIAGNO BIODIAGNO PYLORI STICS STICS COLLECTIO 72675 CHAVA CHAVA N VENOUS 2 BRE BRE BLOOD VENIPUNCT URE SEDIMENTA 88497 LABORATOR LABORATOR TION RATE 2 Y & Y & RBC BIODIAGNO BIODIAGNO NON-AUTOM STICS STICS ATED THERAPEUT 81073 [place]/> 2 [facility] EACH 15 MIN EXERCISES THERAPEUT 19360 [place] 1/> 2 [facility] EACH 15 MIN EXERCISES THERAPEUT 44583 [place]/> 2 [facility] EACH 15 MIN EXERCISES THERAPEUT 78749 [place] 1/> 2 [facility] EACH 15 MIN EXERCISES THERAPEUT 47075 [place]/> 2 [facility] EACH 15 MIN EXERCISES TDAP 66149 VIPUL KRI VIPUL KRI VACCINE 7 2 YRS/> IM THERAPEUT 55107 [place] IC 2 [facility] S GROUP 2/> INDIVIDUA LS THERAPEUT 58828 [place] IC PX 1/> 2 [facility] 15 MIN EXERCISES THERAPEUT 52361 [place] IC PX 1/> 2 [facility] 15 MIN EXERCISES THERAPEUT 71279 [place] IC PX 1/> 2 [facility] 15 MIN EXERCISES THERAPEUT 66965 [place] IC PX 1/> 2 [facility] 15 MIN EXERCISES THERAPEUT 11480 [place] IC PX 1/> 2 [facility] EACH 15 MIN EXERCISES THERAPEUT 74031 [place] IC PX 1/> 2 [facility] EACH 15 MIN EXERCISES THERAPEUT 58883 [place] IC PX 1/> 2 [facility] EACH 15 MIN EXERCISES THERAPEUT 28417 [place] IC PX 1/> 2 [facility] EACH 15 MIN EXERCISES PHYSICAL 23883 [place] THERAPY [address] [facility] N ANES OPEN 16227 ANESTHESI GRABMAYER PROC 2 A [employer] ASSOCIATE LOWER S, PSC LEG/ANKLE /FOOT NOS RADEX 74371 NEW AVERION-M FOOT 2 [facility] [place] MINIMUM 3 PSC VIEWS SMR PRIM 83630 SAVANAH NANNETTE SAVANAH NANNETTE SRC WET 1 [facility] NFCT AGT CRTCHS E0114 eXelateOGeoMe UNDARM 1 OTH THAN WOOD PAIR PAD TIP&HNDGR IP LIPID 32499 LABORATOR LABORATOR PANEL 1 Y & Y & BIODIAGNO BIODIAGNO STICS STICS LIPOPROTE 02291 LABORATOR LABORATOR IN DIRECT 1 Y & Y & BIODIAGNO BIODIAGNO MEASUREME STICS STICS NT LDL CHOLESTER OL BLOOD 46791 LABORATOR LABORATOR COUNT 1 Y & Y & COMPLETE BIODIAGNO BIODIAGNO AUTO&AUTO [place] [address] LABORATOR LABORATOR THYROID 1 Y & Y & STIMULATI BIODIAGNO BIODIAGNO NG STICS STICS HORMONE TSH IIV3 VACC 24854 ANISA LANGE 1 CHARLES SOTO PRESERVAT KYLE FREE 0.5 [place] [address] LABORATOR LABORATOR FREE 1 Y & Y & THYROXINE BIODIAGNO BIODIAGNO STICS STICS SERVICES 43053 ANISA LANGE PROVIDED 1 CHARLES SOTO OFFICE OTH/THN REG SCHED HOURS IAADIADOO 41178 ANISA LANGE 1 CHARLES CHALRES STREPTOCO CCUS GROUP A IAADIADOO 16400 RONI LARSEN 1 N BRE [facility] PEDIATRIC CCUS S PSC GROUP A SERVICES 21251 [facility] KINGS PROVIDED 1 N HOR OFFICE PEDIATRIC OTH/THN S PSC REG SCHED HOURS IAADIADOO 32177 [facility] VIPUL KRI 0 N [facility] PEDIATRIC CCUS S PSC GROUP A FRAMES V2020 [facility] PURCHASES 0 DETERMINA 21577 [facility] TION 0 REFRACTIV E STATE OPHTH 38216 [facility] MEDICAL 0 XM&EVAL COMPRHNSV ESTAB PT 1/> SENSORMOT 63378 [facility] OR XM 0 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 DEVIJ W/I&R SPX RX&FITG 30472 [facility] C-LENS 0 SUPVJ CRNL LENS OU XCPT APHK SPHERE V2100 [facility] SINGLE 0 VISION PLANO +/- 4.00 PER LENS SEDIMENTA 72763 [facility] TION RATE 0 [facility] RBC AUTOMATED BLOOD 17239 [facility] COUNT 0 [facility] COMPLETE AUTO&AUTO DIFRNTL WBC ANTIBODY 09892 [facility] HELICOBAC 0 JAMAL BERRY [facility] 53826 [facility] SIVE 0 [facility] METABOLIC PANEL 4VHPV 68806 [facility] LLUVIA, VACCINE 3 0 N JOHN DOSE PEDIATRIC S SCHEDULE S PSC FOR IM USE RADEX 30600 [facility] PENG SPINE 0 RADIOLOGY T THORACIC 2 VIEWS IAADIADOO 64140 [facility] KATHIE, 0 N MARISELA Huerta [facility] PEDIATRIC CCUS S PSC GROUP A IAADIADOO [address] [facility] KINGS, 0 N ARIANA P [facility] CCUS S PSC GROUP A RADEX 48004 [place] WRIST 9 [facility] MINIMUM 3 VIEWS APPLICATI 54728 CELSA STEEN ON SHORT 9 [facility] SPLINT FOREARM-H AND STATIC UPPER [id number] CELSA STEEN LIMB 9 [facility] NOT OTHERWISE SPECIFIED SPMTRY 51975 RONI KU, W/VC 9 N ARIANA P EXPIRATOR PEDIATRIC Y MORENA S PSC W/WO MXML VOL VNTJ LAIV3 00950 RONI DE LA CRUZRICK, VACCINE 9 N ARIANA P LIVE FOR PEDIATRIC INTRANASA S PSC L USE IAADIADOO 47790 CHRISTIANCarlos Alberto VÁZQUEZ, 9 Silver Huerta INFLUENZA PEDIATRIC S PSC SERVICES 20129 CHRISTIANCarlos Alberto VÁZQUEZ, PROVIDED 9 Silver Huerta OFFICE PEDIATRIC OTH/THN S PSC REG SCHED HOURS IAADIADOO 86813 CHRISTIANCarlos Alberto VÁZQUEZ, 9 Silver Huerta [facility] S PSC GROUP A IAADIADOO 70841 [facility], Rita Huerta [facility] S PSC GROUP A 4VHPV 51476 CHRISTIANCarlos Alberto KU, VACCINE 3 9 N ARIANA P DOSE PEDIATRIC SCHEDULE S PSC FOR IM USE URNLS DIP 86482 [facility] LANGE, 9 N JOHN STICK/TAB PEDIATRIC S LET RGNT S PSC NON-AUTO W/O MICRSCP FAWAD 11147 CHRISTIANCarlos Alberto LLUVIA, VACCINE 9 N JOHN LIVE FOR PEDIATRIC S SUBCUTANE S PSC OUS USE 4VHPV 93631 [facility] LLUVIA, VACCINE 3 9 N JOHN DOSE PEDIATRIC S SCHEDULE S PSC FOR IM USE MRI ANY 99351 [facility] JT LOWER 9 N N EXTREM [facility] W/O [facility] CONTRAST MATRL RADIOLOGI 87596 [facility] C 9 N N EXAMINATI [facility] ON KNEE 3 HOSPITAL HOSPITAL VIEWS E-STIM [id number] CELSA STEEN 1/> AREAS 9 [facility] WND CARE PART TX PLAN THERAPEUT 61208 CELSA STEEN IC PX 1/> 9 [facility] EACH 15 MIN EXERCISES E-STIM G0283 CELSA STEEN /> AREAS 9 [facility] WND CARE PART TX PLAN PHYSICAL 25456 CELSA STEEN THERAPY 9 [facility] N THERAPEUT 49956 CELSA STENE IC PX 1/> 9 [facility] EACH 15 MIN EXERCISES FRAMES V2020 CAROL MEDINA, PURCHASES 9 JITANDER JITANDER S S SPHERE V2100 CAROL MEDINA, SINGLE 9 JITANDER JITANDER VISION S S PLANO +/- 4.00 PER LENS SENSORMOT 48581 CAROL MEDINA, OR XM 9 JITANDER JITANDER W/GEOPHYSICAL LABORATORY SUPERVISOR S S EDEN OCULAR DEVIJ W/I&R SPX FITTING 32888 CAROL MEDINA SPECTACLE 9 JITANDER JITANDER S XCPT S S APHAKIA MONOFOCAL OPHTH 81533 CAROL MEDINA, MEDICAL 9 JITANDER JITANDER XM&EVAL S S COMPRHNSV ESTAB PT 1/> DETERMINA 33988 CAROL MEDINA, TION 9 JITANDER JITANDER REFRACTIV S S E STATE LAIV3 49434 RONI LANGE, VACCINE 9 N JOHN WELLER FOR PEDIATRIC S INTRANASA S PSC L USE IAADIADOO 54704 CHRISTIANCarlos Alberto ULLOA 9 N SHLENNY [facility]US S PSC GROUP A IAADIADOO 21532 CHRISTIANCarlos Alberto ULLOA 8 N SHLENNY [facility]US S PSC GROUP A CUL BACT 05206 [facility] XCPT 8 [facility] URINE BLOOD/STO OL AEROBIC ISOL IAADIADOO 15660 Elver DAVIS [facility] S CCUS S PSC GROUP A KO L1825 J & L J & L ELASTIC 8 COMPOUNDI COMPOUNDI KNEE CAP NG INC NG INC PREFAB INCLUDES FITTING&A DJ Encounters Encounter Start End Date Code Location Performer Type Date OFFICE 11026 [facility] VIPUL KRI OUTPATIEN 4 4 N T VISIT PEDIATRIC 15 S PSC MINUTES OFFICE 41669 [facility] VIPUL KRI OUTPATIEN 4 4 N T VISIT PEDIATRIC 15 S PSC MINUTES PERIODIC 38381 [facility] PREVENTIV 4 4 N CHERRY E MED EST PEDIATRIC PATIENT S PSC 18-39 YRS OFFICE 99949 SWEIGART SWEIGART OUTPATIEN 4 4 LAC LAC T VISIT 25 MINUTES OFFICE 94722 QUACKENBU QUACKENBU OUTPATIEN 4 4 SH LENNY SH LENNY T VISIT 15 MINUTES OFFICE 73161 RICHARDSO RICHARDSO OUTPATIEN 4 4 N KIRILL N KIRILL T NEW 45 MINUTES OFFICE 66077 [facility] RIEBEL OUTPATIEN 3 3 N CHARLES T VISIT PEDIATRIC 15 S PSC MINUTES OFFICE 38507 RIEBEL RIEBEL OUTPATIEN 3 3 CHARLES CHARLES T VISIT 15 MINUTES HOSPITAL [facility] 22328 [facility] OUTPATIEN 3 3 CHARLES CHARLES T VISIT 15 MINUTES [facility]OSPITAL [facility] 44123 LLUVIA LLUVIA OUTPATIEN 3 3 CHARLES CHARLES T VISIT 15 MINUTES OFFICE 22333 [facility] LLUVIA OUTPATIEN 3 3 CHARLES CHARLES T VISIT 15 MINUTES OFFICE 54211 LLUV[facility] LLUVIA OUTPATIEN 3 3 CHARLES CHARLES T VISIT 15 MINUTES OFFICE 30393 VIPUL SUSUI VIPUL KRI OUTPATIEN 3 3 T VISIT 25 MINUTES OFFICE 67594 SAVANAH NANNETTE SAVANAH NANNETTE OUTPATIEN 3 3 T VISIT 15 MINUTES OFFICE 10667 AIDAOSBALDO PARRADY SIRENA OUTPATIEN 3 3 T VISIT 15 MINUTES HOSPITAL [facility] - 3 3 N [facility] H[facility] EMERGENCY 06048 [facility] 3 3 N [facility] T VISIT HOSPITA HIGH/URGE NT SEVERITY EMERGENCY 70116 MACEY CHOUDHURY DEPT 3 3 GOPAL GOPAL VISIT HIGH SEVERITY& THREAT FUN PERIODIC 90021 VIPUL KRI VIPUL KRI PREVENTIV 3 3 E MED EST PATIENT OFFICE 55222 SAVANAH NANNETTE SAVANAH NANNETTE OUTPATIEN 3 3 T VISIT 25 MINUTES OFFICE 96685 QUACKENBU QUACKENBU OUTPATIEN 3 3 SH LENNY SH LENNY T VISIT 15 MINUTES OFFICE 42948 AIDADY SIRENA PARRADY SIRENA OUTPATIEN 3 3 T VISIT 15 MINUTES OFFICE 20371 VIPUL KRI VIPUL KRI OUTPATIEN 2 2 T VISIT 25 MINUTES OFFICE 74198 RODJOSEFA ARMEN RODES ARMEN OUTPATIEN 2 2 T NEW 10 MINUTES OFFICE 80085 [facility] LLUVIA OUTPATIEN 2 2 CHARLES CHARLES T VISIT 15 MINUTES OFFICE 22464 [facility] LL[facility]IA OUTPATIEN 2 2 CHARLES CHARLES T VISIT 15 MINUTES OFFICE 70117 CHAVA LARSEN OUTPATIEN 2 2 BRE BRE T VISIT 25 MINUTES PERIODIC 58549 VIPUL KRI VIPUL KRI PREVENTIV 2 2 E MED EST PATIENT -17YRS [facility] BOARABELLAON - 2 2 [facility] T OFFICE 49284 QUACKENBU QUACKENBU OUTPATIEN 2 2 SH LENNY SH LENNY T VISIT 15 MINUTES HOSPITAL [place] - 2 2 [facility] OFF[facility] 54294 SAVANAH NANNETTE SAVANAH NANNETTE OUTPATIEN 1 1 T NEW 30 MINUTES OFFICE 74628 ANISA LANGE OUTPATIEN 1 1 CHARLES CHARLES T VISIT 15 MINUTES OFFICE 07891 [facility] CHAVA OUTPATIEN 1 1 N BRE T VISIT PEDIATRIC 15 S PSC MINUTES OFFICE 14306 [facility] QUACKENBU OUTPATIEN 1 1 N SH LENNY T VISIT PEDIATRIC 15 S PSC MINUTES PERIODIC 57861 [facility] QUACKENBU PREVENTIV 1 1 N SH LENNY E MED EST PEDIATRIC PATIENT S PSC OFFICE 60747 [facility] LLUVIA OUTPATIEN 1 1 N CHARLES T VISIT PEDIATRIC 15 S PSC MINUTES OFFICE 92358 [facility] VIPUL SUSUI OUTPATIEN 0 0 N T VISIT PEDIATRIC 15 S PSC MINUTES OFFICE 97243 CHRISTIANCarlos Alberto NIELSENR OUTPATIEN 0 0 N CHARLES T VISIT PEDIATRIC 15 S PSC MINUTES OFFICE 64930 [facility] LLUVIA, OUTPATIEN 0 0 N JOHN T VISIT PEDIATRIC S 15 S PSC MINUTES PERIODIC 99475 [facility] LLUVIA, PREVENTIV 0 0 N JOHN E MED EST PEDIATRIC S PATIENT S PSC -YRS [facility] CHRISTIANW - 0 0 N OUTPATIEN [facility] OFFICE 31052 CHRISTIANSHREYA MATTHEW, OUTPATIEN 0 0 N KELLI K T VISIT PEDIATRIC 15 S PSC MINUTES OFFICE 46368 [facility] VÁZQUEZ, OUTPATIEN 0 0 N MARISELA M T VISIT PEDIATRIC 15 S PSC MINUTES OFFICE 76027 [facility] KINGS OUTPATIEN 0 0 N ARIANA P T VISIT PEDIATRIC 15 S PSC MINUTES EMERGENCY 86000 [facility]DR[facility] EMERGENCY T VISIT PHYS INC MODERATE SEVERITY EMERGENCY 90721 [place] 9 9 [facility] HOSPITAL T VISIT LOW/MODER SEVERITY HOSPITAL COMSTOCK - 9 9 [facility] T OFFICE 54282 [facility] KINGS SLAVAPATIEN 9 9 N ARIANA P T VISIT PEDIATRIC 15 S PSC MINUTES OFFICE 10789 [facility] KINGS SLAVAEDWAR 9 9 N ARIANA P T VISIT PEDIATRIC 15 S PSC MINUTES OFFICE 79373 [facility] KATHIE [facility]H [facility] LUISA 9 9 N MARISELA Huerta T VISIT PEDIATRIC 25 S PSC MINUTES OFFICE 66471 [facility] ARTEMIO OUTPATIEN 9 9 N SH, LENNY N T VISIT PEDIATRIC 15 S PSC MINUTES OFFICE 79655 [facility] RUPERT LANGE 9 9 N JOHN Bradshaw VISIT PEDIATRIC S 15 S PSC MINUTES PERIODIC 74268 [facility] LLUVIA PREVENTIV 9 9 N JOHN E MED EST PEDIATRIC S PATIENT S PSC 12-17S OFFICE 25350 [facility] BR[facility]ES 9 9 [place] SAM Sommers ION ORTHOPAED NEW/ESTAB ICS PLC PATIENT 60 MIN HOSPITAL [facility] - 9 9 N [facility] OFFICE 62772 [facility] ARTEMIO OUTPATIEN 9 9 N SH, LENNY N T VISIT PEDIATRIC 15 S PSC MINUTES HOSPITAL [facility] - 9 9 N [facility] HOSPITAL OFFICE 61377 CAROL MEDINA OUTPATIEN 9 9 DARION ORLANDO T VISIT S S 25 MINUTES [facility]ITAL [facility] 9 [facility] COMSTOCK - 9 9 [facility] T OFFICE 92275 RONI LANGE, OUTPATIEN 9 9 N JOHN T VISIT PEDIATRIC S 15 S PSC MINUTES OFFICE 14965 CHRISTIANCarlos Alberto QUACKENBU OUTPATIEN 9 9 N SH, LENNY N T VISIT PEDIATRIC 15 S PSC MINUTES OFFICE 40106 [facility] QUACKENBU OUTPATIEN 8 8 N SH, LENNY N T VISIT PEDIATRIC 15 S PSC MINUTES OFFICE 89081 CHRISTIANEDISON QUACKENBU OUTPATIEN 8 8 N SH, LENNY N T VISIT PEDIATRIC 15 S PSC MINUTES OFFICE 95511 CHRISTIANCarlos Alberto KINGS OUTPATIEN 8 8 N ARIANA P T VISIT PEDIATRIC 15 S PSC MINUTES OFFICE 03714 [facility] LANGE, OUTPATIEN 8 8 N JOHN T VISIT PEDIATRIC S 15 S PSC MINUTES PERIODIC 88356 RONI AUGUSTEKE, PREVENTIV 8 8 N KELLI Pinedo E MED EST PEDIATRIC PATIENT S PSC 12-17YRS OFFICE 62676 RONI AUGUSTEKE, OUTPATIEN 8 8 N KELLI K T VISIT PEDIATRIC 25 S PSC MINUTES OFFICE 46191 CHRISTIANCarlos Alberto LLUVIA, OUTPATIEN 8 8 N JOHN T VISIT PEDIATRIC S 15 S PSC MINUTES OFFICE 40677 CHRISTIANCarlos Alberto LLUVIA, OUTPATIEN 8 8 N JOHN T VISIT PEDIATRIC S 15 S PSC MINUTES OFFICE 67235 RONI LLUVIA, OUTPATIEN 8 8 N JOHN T VISIT PEDIATRIC S 15 S PSC MINUTES OFFICE 20150 CHRISTIANCarlos Alberto VIKKIACKENBU OUTPATIEN 8 8 N SH, LENNY N T VISIT PEDIATRIC 15 S PSC MINUTES
--- OUTSIDE RECORDS SUMMARY | 2017-05-16 03:41 | External Medical Summary Rpt | CCD ---
Author Author , DIAZ Organization DIAZ Address Unknown Phone [email or web address] Care Team Providers Care Rd Manager Name Role Phone ANESTHESIA Unavailable [facility]available [facility], [facility], [facility], Unavailable Unavailable [facility] CHAVA BRE, CHAVA Unavailable Unavailable BRE [facility] Unavailable Unavailable [facility], Unavailable Unavailable [id number], Unavailable Unavailable [id number] Unavailable Unavailable [facility] Unavailable Unavailable DUDEE CORBIN, DUDEE CORBIN Unavailable Unavailable DUDEE CORBIN, DUDEE CORBIN Unavailable Unavailable DUDEE JITANDER S, Unavailable Unavailable DUDEE, JITANDER S Alla PENG, GINETTE G Unavailable Unavailable T MACEY LOPEZ Unavailable Unavailable ALEC NORIEGA Unavailable Unavailable [facility] Unavailable Unavailable [facility] Unavailable [facility]available [facility], [facility]available Unavailable [facility], [facility] GRABMAYER MASON, Unavailable Unavailable GRABMAYER MASON KINGS MAJANO, Unavailable Unavailable ARIANA YOUNG, Unavailable Unavailable ARIANA KU HODOSBALDO SIRENA, HODDY SIRENA Unavailable Unavailable KATHIE PACK, HODDY SIRENA Unavailable Unavailable MARISELA VÁZQUEZ, Unavailable Unavailable MARISELA VÁZQUEZ [employer] [facility] [employer] Unavailable Unavailable INC, [facility] Unavailable Unavailable HOLDINGS, [facility], Unavailable Unavailable [facility] & Unavailable Unavailable [facility]ORY & [...] Unavailable SAVANAH NANNETTE, SAVANAH NANNETTE Unavailable Unavailable [facility], Unavailable Unavailable [facility] Unavailable Unavailable #[id number], [facility] # Unavailable Unavailable [id number], [facility] # [id number] [phone], Unavailable Unavailable [id number] SAM BRIDGES, Unavailable Unavailable SAM BRIDGES Purpose Continuity of Care Document - 08-10-2007 through 2016 Problems Code Diagnosis DOS Provider Status K29.50 UNSPECIFIED 11-17-2016 CHRONIC GASTRITIS WITHOUT BLEEDING K59.00 CONSTIPATIO 11-17-2016 N, UNSPECIFIED R10.13 EPIGASTRIC 11-17-2016 PAIN R10.9 UNSPECIFIED 10-21-2016 ABDOMINAL PAIN 19805 GENERALIZED 03-13-2014 [facility] DISORDER PSC 7061 OTHER ACNE 03-06-2014 [facility] PSC 7821 RASH AND 03-06-2014 [facility] OTHER [facility]EDI[facility] NONSPECIFIC PSC SKIN ERUPTION V700 ROUTINE 12-26-2013 [facility]AL [facility] MEDICAL PSC EXAM@HEALTH CARE FACL 91737 OTOGENIC 11-23-2013 [facility] PAIN LAC 460 ACUTE 11-23-2013 [facility] NASOPHARYNG LAC ITIS 5362 PERSISTENT 11-23-2013 [facility] VOMITING LAC 03731 NAUSEA 11-23-2013 [facility] ALONE LAC 4658 ACUTE URIS 10-17-2013 FR[facility] OF OTHER LENNY MULTIPLE SITES 7862 COUGH 10-17-2013 [facility] LENNY 9210 BLACK EYE, 09-12-2013 JYOTI NOT KIRILL OTHERWISE SPECIFIED 3688 OTHER 09-09-2013 [facility] SPECIFIED LENNY VISUAL DISTURBANCE S 9181 SUPERFICIAL 09-09-2013 [facility] INJURY OF LENNY CORNEA 9189 OTHER&UNSPE 09-09-2013 [facility] CIFIED LENNY SUPERFICIAL INJURIES OF EYE 39100 SLOW 07-31-2013 [facility] TRANSIT [facility] CONSTIPATIO [facility] N 89295 ABDOMINAL 07-31-2013 [facility] PAIN, PEDIATRICS UNSPECIFIED PSC SITE 7830 ANOREXIA 06-22-2013 RIEBEL CHARLES 55634 ABDOMINAL 06-22-2013 RIEBDIONISIO SOOT PAIN, GENERALIZED 87168 ACUT 05-31-2013 [facility] CHARLES SUPPRATV OTITIS MEDIA W/O SPONT RUP EARDRUM 71442 CHILLS 05-31-2013 [facility] CHARLES WITHOUT FEVER 17729 OTHER 05-31-2013 [facility] CHARLES MALAISE AND FATIGUE 7840 HEADACHE 05-31-2013 [facility] CHARLES V0481 NEED 05-17-2013 ANISA SOTO PROPHYLACTI C VACCINATION &INOCULATIO N FLU 91643 SHORTNESS 05-03-2013 [facility] 44063 CHEST PAIN 05-03-2013 [facility] 59462 PRECORDIAL 04-27-2013 [facility] CHARLES PAIN 4618 OTHER ACUTE 03-30-2013 [facility] CHARLES SINUSITIS 462 ACUTE 03-30-2013 [facility] CHARLES PHARYNGITIS 91689 FEVER 03-30-2013 [facility] CHARLES UNSPECIFIED 12805 SLOWING OF 03-16-2013 [facility] CHARLES URINARY STREAM 6253 DYSMENORRHE 01-17-2013 SAVANAH NANNETTE A 6262 EXCESSIVE 01-17-2013 SAVANAH NANNETTE OR FREQUENT MENSTRUATIO N 6264 IRREGULAR 01-17-2013 SAVANAH NANNETTE MENSTRUAL CYCLE 56041 ONYCHIA AND 01-16-2013 RODES ARMEN PARONYCHIA OF TOE 7038 OTHER 01-16-2013 RODES ARMEN SPECIFIED DISEASE OF NAIL 5602 PAIN IN 01-16-2013 RODES ARMEN SOFT TISSUES OF LIMB 9243 CONTUSION 01-16-2013 RODES ARMEN OF TOE 57713 OTHER CHEST 11-28-2012 [place] PAIN [facility] 84685 ABDOMINAL 11-28-2012 [place]IN[facility] V0389 NEED PROPH 11-21-2012 VIPUL BAZAN VACC AGAINST OTH SPEC VACC V202 ROUTINE 11-21-2012 VIPUL BAZAN INFANT OR CHILD HEALTH CHECK V6545 COUNSELING 11-09-2012 SAVANAH NANNETTE OTHER SEXUALLY TRANSMITTED DISEASES 3671 MYOPIA 09-22-2012 DUDEE CORBIN 7030 INGROWING 06-28-2012 VIPUL BAZAN NAIL 0340 STREPTOCOCC 04-13-2012 [facility] ECHEVERRIA SORE THROAT V061 NEED PROPH 11-20-2011 VIPUL SUSUI VAC W/COMB DIPHTH-TETA NUS-PERTUSS VAC 07474 PAIN IN 11-01-2011 [facility] ANKLE AND HOSPITAL FOOT V4589 OTHER 11-01-2011 [facility] OTHER V571 OTHER 11-01-2011 [facility] PHYSICAL [facility] 6918 OTHER 10-30-2011 [facility] ATOPIC LENNY DERMATITIS AND RELATED CONDITIONS 93996 DIARRHEA 10-30-2011 FR[facility] LENNY 08404 OTHER JOINT 09-22-2011 [facility], DERANGEMENT PSC NEC ANKLE AND FOOT 46761 OTHER 09-22-2011 [facility] DISORDERS [facility], OF BONE AND PSC CARTILAGE OTHER 59342 UNSPECIFIED 07-03-2011 SAVANAH NANNETTE VAGINITIS AND VULVOVAGINI TIS 31156 ABDOMINAL 07-03-2011 SAVANAH NANNETTE PAIN RIGHT LOWER QUADRANT 87184 ABDOMINAL 07-03-2011 SAVANAH NANNETTE PAIN, LEFT LOWER QUADRANT 8360 TEAR MEDIAL 06-24-2011 [facility] CARTILAGE OR MENISCUS KNEE CURRENT 79320 OTHER SLEEP 06-17-2011 RICHRISTOPHER CHARLES DISTURBANCE S 39764 ACUTE 11-25-2010 [facility] ATOPIC [facility] CONJUNCTIVI PSC TIS 00402 ESOPHAGEAL 11-25-2010 [facility] REFLUX PEDIATRICS PSC 44652 UNSPECIFIED 08-21-2010 [facility] ACUTE [facility] NONSUPPURAT PSC KYLE OTITIS MEDIA 48330 OTHER JOINT 08-02-2010 [facility] DERANGEMENT PSC NEC LOWER LEG 4739 UNSPECIFIED 05-27-2010 [facility] SINUSITIS PEDIATRICS PSC 3670 HYPERMETROP 04-15-2010 [place] [address] SUPPRESSION 04-15-2010 DUDEE CORBIN OF BINOCULAR VISION 01175 CONTACT AND 04-15-2010 DUDEE CORBIN ALLERGIC DERMATITIS OF EYELID 98216 MIGRAINE 04-02-2010 [facility] UNSP W/O PEDIATRICS INTRACT W/O PSC STATUS MIGRAINOSUS 89406 OTHER 12-19-2009 [facility] CHRONIC [facility]ED[facility]RICS PAIN PSC 4779 ALLERGIC 11-12-2009 [facility] RHINITIS PEDIATRICS CAUSE PSC UNSPECIFIED V059 NEED PROPH 11-12-2009 [place] VACC&INOCUL PEDIATRICS AT [facility] PSC UNSPEC SINGLE DZ 7242 LUMBAGO 11-04-2009 [facility] [place] [facility] 7245 UNSPECIFIED 11-04-2009 [facility] BACKACHE [facility] 4659 ACUTE URIS 10-09-2009 [facility] OF PEDIATRICS UNSPECIFIED PSC SITE 463 ACUTE 09-18-2009 [facility] TONSILLITIS PEDIATRICS PSC 08315 SPRAIN AND 07-27-2009 [facility] STRAIN OF N EMERGENCY UNSPECIFIED PHYS INC SITE OF WRIST E9278 OTH 07-27-2009 [facility] OVEREXERT&S N EMERGENCY TRENUOUS&RE PHYS INC PETITIVE MVMNTS/LOAD S 7336 TIETZES 07-03-2009 [facility] DISEASE [facility]EDIATRICS PSC 61050 OTHER 05-08-2009 [facility] INJURY OF PEDIATRICS OTHER SITES PSC OF TRUNK 4871 INFLUENZA 04-05-2009 [facility] WITH OTHER PEDIATRICS RESPIRATORY PSC MANIFESTATI ONS 43716 HYPERVENTIL 11-28-2008 [facility] ATION PEDIATRICS PSC 6260 ABSENCE OF 11-19-2008 [facility] MENSTRUATIO PEDIATRICS N PSC V054 NEED PROPH 11-02-2008 [facility] VACC&INOCUL PEDIATRICS AT AGAINST PSC VARICELLA 74712 PAIN IN 10-15-2008 [facility] [place] JOINT, ORTHOPAEDIC LOWER LEG S PLC 98121 EFFUSION OF 10-11-2008 [facility] LOWER LEG [facility] 8449 SPRAIN&STRA 02-29-2008 [facility] IN OF PEDIATRICS UNSPECIFIED PSC SITE OF KNEE&LEG 53864 UNS 10-06-2007 [facility] GASTRITIS&G PEDIATRICS ASTRODUODIT PSC IS W/O MENTION HEMORR 90518 UNSPECIFIED 10-06-2007 [facility] CONSTIPATIO PSC N 6235 LEUKORRHEA 09-16-2007 [facility] NOT [place] [facility] SPECIFIED INFECTIVE 7010 CIRCUMSCRIB 09-16-2007 [facility] ED [facility]EDI[facility]ICS SCLERODERMA PSC 8441 SPRAIN AND [...] CA PS 10 UL 04 E 93 OR 37 04 04 1 30 30 WA [...] 0 10 10 WA 70 KEARNEY Ac ID [id number] .0 L- 68 MB [...] EA [address] 93 OP OR 68 11 11 1 8. 2 WA 70 HO Ac OM 38 -2 -2 00 L- 56 DD ti ET 20 6- 6- 0 MA 40 Y ve KEARNEY 04 20 20 RT 9 DA ZI [...] MG 10 04 TA 93 BL ET OR 64 09 09 1 30 30 WA [...] 10 10 JE E 9 PH NN OR AR IF OP MA ER CY S [...] 10 10 JE E 9 PH NN OR AR IF OP MA ER CY S 50 # MC 10 G 04 SP 93 RA Y OR 64 04 04 2 30 30 WA [...] 09 09 JE E 9 PH NN OR AR IF OP MA ER CY S [...] Procedure DOS Code Location Performer Comment SERVICES 18080 QUACKENBU QUACKENBU PROVIDED 4 SH LENNY LENNY OFFICE OTH/THN REG SCHED HOURS RADEX 41050 [facility] ABDOMEN 1 3 N N [facility] ANTEROPOS HOSPITA HOSPITA TERIOR VIEW IIV3 54432 RIEBEL RIEBEL VACCINE 3 CHARLES CHARLES SPLIT VIRUS 0.5 ML DOSAGE IM USE ECG 72428 [facility] ROUTINE 3 Y Y ECG [facility] W/LEAST 12 LDS TRCG ONLY W/O I&R ECG [address] ROUTINE 3 DEBRA DEBRA ECG W/LEAST 12 LDS I&R ONLY ECHO [address] TTHRC R-T 3 DEBRA DEBRA 2D W/WOM-MOD E COMPL SPEC&[place] [address] LAB SELINA LAB SELINA FREE 3 TONG [place] [address] LAB SELINA LAB SELINA THYROID 3 TONG TONG STIMULATI HOLDINGS HOLDINGS NG HORMONE TSH SPMTRY 90214 [facility] W/VC 3 CHARLES CHARLES EXPIRATOR Y MORENA W/WO MXML VOL VNTJ BLOOD 41278 LAB SELINA LAB SELINA COUNT 3 TONG TONG COMPLETE HOLDINGS HOLDINGS AUTO&AUTO DIFRNTL WBC IAADIADOO 34771 [facility] LL[facility] 3 CHARLES CHARLES STREPTOCO CCUS GROUP A URNLS DIP 16323 [facility] LLUVIA 3 CHARLES CHARLES STICK/TAB LET RGNT NON-AUTO W/O MICRSCP EXCISION 99909 RODES ARMEN RODES ARMEN NAIL 3 MATRIX PERMANENT REMOVAL COMPREHEN 10262 [facility] SIVE 3 N N METABOLIC [facility] COMMUNITY PANEL HOSPITA HOSPITA RADIOLOGI 81547 [facility] C EXAM 3 N N CHEST 2 COMMUNITY [facility] VIEWS HOSPITA HOSPITA FRONTAL&[place] [address] [facility] LIPASE 3 N N [facility] HOSPITA HOSPITA BLOOD 83823 [facility] COUNT 3 N N COMPLETE [facility] AUTO&AUTO HOSPITA HOSPITA DIFRNTL WBC COLLECTIO 08741 [facility] N VENOUS 3 N N BLOOD [facility] VENIPUNCT [place] [address] [facility] AMYLASE 3 N N [facility] HOSPITA HOSPITA ECG 37678 MACEY CHOUDHURY ROUTINE 3 GOPAL GOPAL ECG W/LEAST 12 LDS I&R ONLY MCV4 98871 VIPUL KRI VIPUL KRI MENACWY 3 CONJ VACC GRPS ACYW-135 IM USE URNLS DIP 85940 QUACKENBU QUACKENBU 3 SH LENNY SH LENNY STICK/TAB LET RGNT NON-AUTO W/O MICRSCP OPHTH 66295 DUDEE CORBIN DUDEE CORBIN MEDICAL 3 XM&EVAL COMPRHNSV ESTAB PT 1/> FITTING 10159 DUDEE CORBIN DUDEE CORBIN SPECTACLE 3 S XCPT APHAKIA MONOFOCAL DETERMINA 75482 DUDEE CORBIN DUDEE CORBIN TION 3 REFRACTIV E STATE FRAMES V2020 DUDEE CORBIN DUDEE CORBIN PURCHASES 3 1 VISN V2103 DUDEE CORBIN DUDEE CORBIN PLANO 3 TO+/-4.00 D SPHER 0.12-2.00 D CYL EA LENS V2784 DUDEE CORBIN DUDEE CORBIN POLYCARBO 3 CHLOE OR EQUAL ANY INDEX PER LENS IAADIADOO 45909 VIPUL KRI VIPUL KRI 2 STREPTOCO CCUS GROUP A EXCISION 40729 RODES ARMEN RODES ARMEN NAIL 2 MATRIX PERMANENT REMOVAL IAADIADOO 60654 LL[facility] TEIXEIRA 2 CHARLES CHARLES STREPTOCO CCUS GROUP A AVULSION 38093 HODDY SIRENA HODDY SIRENA NAIL 2 PLATE PARTIAL/C OMPLETE SIMPLE 1 COMPREHEN 21049 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 EACH 15 MIN EXERCISES THERAPEUT 16266 [place] PX 1/> 2 [facility] EACH 15 MIN EXERCISES THERAPEUT 60675 [place] P[place] 1/> 2 [facility] EACH 15 MIN EXERCISES THERAPEUT 27075 [place] 1/> 2 [facility] EACH 15 MIN EXERCISES THERAPEUT 52245 [place] IC PX 1/> 2 [facility] EACH 15 MIN EXERCISES TDAP 83468 VIPUL KRI VIPUL KRI VACCINE 7 2 YRS/> IM THERAPEUT 08785 [place] IC 2 [facility] S GROUP 2/> INDIVIDUA LS THERAPEUT 13609 [place] PX 1/> 2 [facility] EACH 15 MIN EXERCISES THERAPEUT 45816 [place] PX 1/> 2 [facility] EACH 15 MIN EXERCISES THERAPEUT 16408 [place] PX 1/> 2 [facility] EACH 15 MIN EXERCISES THERAPEUT 98604 [place] PX 1/> 2 [facility] EACH 15 MIN EXERCISES THERAPEUT 35209 [place] P[place] 1/> 2 [facility] EACH 15 MIN EXERCISES THERAPEUT 35989 [place] P[place] 1/> 2 [facility] EACH 15 MIN EXERCISES THERAPEUT 96940 [place] P[place] 1/> 2 [facility] EACH 15 MIN EXERCISES THERAPEUT 30388 [place] IC PX 1/> 2 [facility] EACH 15 MIN EXERCISES PHYSICAL 42082 [place] THERAPY [address] [facility] N ANES OPEN 26924 ANESTHESI GRABMAYER PROC 2 A [place]ON BONES ASSOCIATE LOWER S, PSC LEG/ANKLE /FOOT NOS RADEX 52326 NEW AVERION-M FOOT 2 [facility] COMPLETE CLINIC [place] MINIMUM 3 PSC VIEWS SMR PRIM 69803 SAVANAH NANNETTE SAVANAH NANNETTE SRC WET [address] [facility] NFCT AGT CRTCHS E0114 [employer] UNDARM 1 OTH THAN WOOD PAIR PAD TIP&HNDGR IP LIPID 62261 LABORATOR LABORATOR PANEL 1 Y & Y & BIODIAGNO BIODIAGNO STICS STICS LIPOPROTE 32500 LABORATOR LABORATOR IN DIRECT 1 Y & Y & BIODIAGNO BIODIAGNO MEASUREME STICS STICS NT LDL CHOLESTER OL BLOOD 31552 LABORATOR LABORATOR COUNT 1 Y & Y & COMPLETE BIODIAGNO BIODIAGNO AUTO&AUTO [place] [address] LABORATOR LABORATOR THYROID 1 Y & Y & STIMULATI BIODIAGNO BIODIAGNO NG STICS STICS HORMONE TSH IIV3 VACC 71853 ANISA LANGE 1 CHARLES SOTO PRESERVAT KYLE FREE 0.5 [place] [address] LABORATOR LABORATOR FREE 1 Y & Y & THYROXINE BIODIAGNO BIODIAGNO STICS STICS SERVICES 60585 ANISA LANGE PROVIDED 1 CHARLES SOTO OFFICE OTH/THN REG SCHED HOURS IAADIADOO 09926 ANISA LANGE 1 CHARLES CHARLES STREPTOCO CCUS GROUP A IAADIADOO 71958 RONI LARSEN 1 N BRE STREPTOCO PEDIATRIC CCUS S PSC GROUP A SERVICES 50636 [facility] KINGS PROVIDED 1 N HOR OFFICE PEDIATRIC OTH/THN S PSC REG SCHED HOURS IAADIADOO 61158 [facility] VIPUL KRI 0 N STREPTOCO PEDIATRIC CCUS S PSC GROUP A FRAMES V2020 DUDEE CORBIN DUDEE CORBIN PURCHASES 0 DETERMINA 05447 DUDEE CORBIN DUDEE CORBIN TION 0 REFRACTIV E STATE OPHTH 03604 DUDEE CORBIN DUDEE CORBIN MEDICAL 0 XM&EVAL COMPRHNSV ESTAB PT 1/> SENSORMOT 54836 DUDEE CORBIN DUDEE CORBIN OR XM 0 W/LOOP CUTTER EDEN OCULAR DEVIJ W/I&R SPX RX&FITG 89698 DUDEE CORBIN DUDEE CORBIN C-LENS 0 SUPVJ CRNL LENS OU XCPT APHK SPHERE V2100 DUDEE CORBIN DUDEE CORBIN SINGLE 0 VISION PLANO +/- 4.00 PER LENS SEDIMENTA 96444 [facility] OF TION RATE 0 [facility] RBC AUTOMATED BLOOD 99634 [facility] OF COUNT 0 [facility] COMPLETE AUTO&AUTO DIFRNTL WBC ANTIBODY 00560 [facility] D[facility] HELICOBAC 0 JAMAL BERRY [facility] 90720 [facility] OF SIVE 0 [facility] METABOLIC PANEL 4VHPV 21070 [facility] LLUVIA, VACCINE 3 0 N JOHN DOSE PEDIATRIC S SCHEDULE S PSC FOR IM USE RADEX 64280 [facility] [place] Alla PENG SPINE 0 RADIOLOGY T THORACIC 2 VIEWS IAADIADOO 63104 [facility] KATHIE, 0 N MARISELA Huerta STREPTOCO PEDIATRIC CCUS S PSC GROUP A IAADIADOO 53162 [facility] KINGS, 0 N ARIANA P STREPTOCO PEDIATRIC CCUS S PSC GROUP A RADEX 66568 [place] WRIST 9 [facility] MINIMUM 3 VIEWS APPLICATI 14157 CELSA STEEN ON SHORT 9 [facility] SPLINT FOREARM-H AND STATIC UPPER L3999 CELSA STEEN LIMB 9 [facility] NOT OTHERWISE SPECIFIED SPMTRY 19141 RONI KU, W/VC 9 N ARIANA P EXPIRATOR PEDIATRIC Y MORENA S PSC W/WO MXML VOL VNTJ LAIV3 65454 RONI DE LA CRUZRICK, VACCINE 9 N ARIANA P LIVE FOR PEDIATRIC INTRANASA S PSC L USE IAADIADOO 57108 CHRISTIANCarlos Alberto VÁZQUEZ, 9 Silver Huerta INFLUENZA PEDIATRIC S PSC SERVICES 52165 CHRISTIANCarlos Alberto VÁZQUEZ, PROVIDED 9 Silver uHerta OFFICE PEDIATRIC OTH/THN S PSC REG SCHED HOURS IAADIADOO 03833 CHRISTIANCarlos Alberto VÁZQUEZ, 9 Silver Huerta STREPTOCO PEDIATRIC CCUS S PSC GROUP A IAADIADOO 31600 [facility] VÁZQUEZ, Rita Huerta STREPTOCO PEDIATRIC CCUS S PSC GROUP A 4VHPV 53999 CHRISTIANCarlos Alberto KU, VACCINE 3 9 N ARIANA P DOSE PEDIATRIC SCHEDULE S PSC FOR IM USE URNLS DIP 78482 [facility] LANGE, 9 N JOHN STICK/TAB PEDIATRIC S LET RGNT S PSC NON-AUTO W/O MICRSCP FAWAD 71254 CHRISTIANCarlos Alberto LLUVIA, VACCINE 9 N JOHN LIVE FOR PEDIATRIC S SUBCUTANE S PSC OUS USE 4VHPV 03946 [facility] LLUVIA, VACCINE 3 9 N JOHN DOSE PEDIATRIC S SCHEDULE S PSC FOR IM USE MRI ANY 39421 [facility] JT LOWER 9 N N EXTREM [facility] W/O [facility] CONTRAST MATRL RADIOLOGI 10116 [facility] C 9 N N EXAMINATI [facility] ON KNEE 3 HOSPITAL HOSPITAL VIEWS E-STIM G0283 CELSA STEEN 1/> AREAS 9 [facility] W[facility] C[facility] PART TX PLAN THERAPEUT 43322 CELSA STEEN IC PX 1/> 9 [facility] EACH 15 MIN EXERCISES E-STIM G0283 CELSA STEEN /> AREAS 9 [facility] W[facility] PART TX PLAN PHYSICAL 19951 CELSA STEEN THERAPY [address] [facility] N THERAPEUT 97695 CELSA STEEN IC PX 1/> 9 [facility] EACH 15 MIN EXERCISES FRAMES V2020 CAROL MEDINA, PURCHASES 9 JITANDER JITANDER S S SPHERE V2100 CAROL MEDINA, SINGLE 9 JITANDER JITANDER VISION S S PLANO +/- 4.00 PER LENS SENSORMOT 01737 CAROL MEDINA, OR XM 9 JITANDER JITANDER W/LOOP CUTTER S S EDEN OCULAR DEVIJ W/I&R SPX FITTING 12921 [facility] SPECTACLE 9 JITANDER JITANDER S XCPT S S APHAKIA MONOFOCAL OPHTH 89487 [facility]OL MEDINA, MEDICAL 9 JITANDER JITANDER XM&EVAL S S COMPRHNSV ESTAB PT 1/> DETERMINA 79680 CAROL MEDINA, TION 9 JITANDER JITANDER REFRACTIV S S E STATE LAIV3 65396 RONI LANGE, VACCINE 9 N JOHN WELLER FOR PEDIATRIC S INTRANASA S PSC L USE IAADIADOO 61444 CHRISTIANCarlos Alberto ULLOA 9 N SHLENNY STREPTOCO PEDIATRIC CCUS S PSC GROUP A IAADIADOO 65363 CHRISTIANCarlos Alberto ULLOA 8 N SHLENNY STREPTOCO PEDIATRIC CCUS S PSC GROUP A CUL BACT 32696 [facility] OF XCPT 8 [facility] INC URINE BLOOD/STO OL AEROBIC ISOL IAADIADOO 08783 Elver DAVIS STREPTOCO PEDIATRIC S CCUS S PSC GROUP A KO L1825 J & L J & L ELASTIC 8 COMPOUNDI COMPOUNDI KNEE CAP NG INC NG INC PREFAB INCLUDES FITTING&A DJ Encounters Encounter Start End Date Code Location Performer Type Date OFFICE 88488 [facility] VIPUL KRI OUTPATIEN 4 4 N T VISIT PEDIATRIC 15 S PSC MINUTES OFFICE 26722 [facility] VIPUL KRI OUTPATIEN 4 4 N T VISIT PEDIATRIC 15 S PSC MINUTES PERIODIC 80264 [facility] PREVENTIV 4 4 N CHERRY E MED EST PEDIATRIC PATIENT S PSC 18-39 YRS OFFICE 72143 SWEIGART SWEIGART OUTPATIEN 4 4 LAC LAC T VISIT 25 MINUTES OFFICE 20640 QUACKENBU QUACKENBU OUTPATIEN 4 4 SH LENNY SH LENNY T VISIT 15 MINUTES OFFICE 05560 RICHARDSO RICHARDSO OUTPATIEN 4 4 N KIRILL N KIRILL T NEW 45 MINUTES OFFICE 87864 [facility] RIEBEL OUTPATIEN 3 3 N CHARLES T VISIT PEDIATRIC 15 S PSC MINUTES OFFICE 02008 RIEBEL RIEBEL OUTPATIEN 3 3 CHARLES CHARLES T VISIT 15 MINUTES [facility]PITAL [facility] 3 3 CHARLES CHARLES T VISIT 15 MINUTES [facility] 3 3 CHARLES CHARLES T VISIT 15 MINUTES OFFICE 73718 [facility] OUTPATIEN 3 3 CHARLES CHARLES T VISIT 15 MINUTES OFFICE 15270 [facility] OUTPATIEN 3 3 CHARLES CHARLES T VISIT 15 MINUTES OFFICE 31733 VIPUL SUSUI VIPUL KRI OUTPATIEN 3 3 T VISIT 25 MINUTES OFFICE 57148 SAVANAH NANNETTE SAVANAH NANNETTE OUTPATIEN 3 3 T VISIT 15 MINUTES OFFICE 58843 AIDAOSBALDO PARRADY SIRENA OUTPATIEN 3 3 T VISIT 15 MINUTES HOSPITAL [facility] - 3 3 N [facility] T HOSPITA EMERGENCY 48728 [facility] 3 3 N [facility] T VISIT HOSPITA HIGH/URGE NT SEVERITY EMERGENCY 40367 MACEY CHOUDHURY DEPT 3 3 GOPAL GOPAL VISIT HIGH SEVERITY& THREAT FUN PERIODIC 08138 VIPUL KRI VIPUL KRI PREVENTIV 3 3 E MED EST PATIENT OFFICE 92774 SAVANAH NANNETTE SAVANAH NANNETTE OUTPATIEN 3 3 T VISIT 25 MINUTES OFFICE 81374 QUACKENBU QUACKENBU OUTPATIEN 3 3 SH LENNY SH LENNY T VISIT 15 MINUTES OFFICE 76865 AIDADY SIRENA PARRADY SIRENA OUTPATIEN 3 3 T VISIT 15 MINUTES OFFICE 58771 VIPUL KRI VIPUL KRI OUTPATIEN 2 2 T VISIT 25 MINUTES OFFICE 12380 RODJOSEFA ARMEN RODES ARMEN OUTPATIEN 2 2 T NEW 10 MINUTES OFFICE 32499 [facility] OUT[facility]IEN 2 2 CHARLES CHARLES T VISIT 15 MINUTES OFFICE 52010 [facility] OUTPATIEN 2 2 CHARLES CHARLES T VISIT 15 MINUTES OFFICE 45576 CHAVA LARSEN OUTPATIEN 2 2 BRE BRE T VISIT 25 MINUTES PERIODIC 90922 VIPUL KRI VIPUL KRI PREVENTIV 2 2 E MED EST PATIENT -17YRS [facility] - 2 2 [facility] T OFFICE 38921 QUACKENBU QUACKENBU OUTPATIEN 2 2 SH LENNY SH LENNY T VISIT 15 MINUTES [facility] [place] - 2 2 [facility] OFF[facility] 97700 SAVANAH NANNETTE SAVANAH NANNETTE OUTPATIEN 1 1 T NEW 30 MINUTES OFFICE 09623 ANISA LANGE OUTPATIEN 1 1 CHARLES CHARLES T VISIT 15 MINUTES OFFICE 94287 [facility] CHAVA OUTPATIEN 1 1 N BRE T VISIT PEDIATRIC 15 S PSC MINUTES OFFICE 86101 [facility] QUACKENBU OUTPATIEN 1 1 N SH LENNY T VISIT PEDIATRIC 15 S PSC MINUTES PERIODIC 81704 [facility]ENBU PREVENTIV 1 1 N SH LENNY E MED EST PEDIATRIC PATIENT S PSC OFFICE 56784 [facility]PATI[facility] 1 1 N CHARLES T VISIT PEDIATRIC 15 S PSC MINUTES OFFICE 94821 [facility] VIPUL SUSUI OUTPATIEN 0 0 N T VISIT PEDIATRIC 15 S PSC MINUTES OFFICE 32635 CHRISTIANCarlos Alberto NIELSENR OUTPATIEN 0 0 N CHARLES T VISIT PEDIATRIC 15 S PSC MINUTES OFFICE 22916 [facility] LLUVIA, OUTPATIEN 0 0 N JOHN T VISIT PEDIATRIC S 15 S PSC MINUTES PERIODIC 64455 [facility] LLUVIA, PREVENTIV 0 0 N JOHN E MED EST PEDIATRIC S PATIENT S PSC -YRS [facility] CHRISTIANW - 0 0 N OUTPATIEN [facility] OFFICE 73639 CHRISTIANSHREYA MATTHEW, OUTPATIEN 0 0 N KELLI K T VISIT PEDIATRIC 15 S PSC MINUTES OFFICE 04024 [facility] [facility]ENTERCarlos Alberto VÁZQUEZ, OUTPATIEN 0 0 N MARISELA M T VISIT PEDIATRIC 15 S PSC MINUTES OFFICE 01288 [facility] KINGS OUTPATIEN 0 0 N ARIANA P T VISIT PEDIATRIC 15 S PSC MINUTES EMERGENCY [id number] [facility] EMERGENCY T VISIT PHYS INC MODERATE SEVERITY EMERGENCY 92412 [place] 9 9 [facility] HOSPITAL T VISIT LOW/MODER SEVERITY HOSPITAL CASEY - 9 9 [facility] T OFFICE 93278 [facility] KINGS SLAVAPATIEN 9 9 N ARIANA P T VISIT PEDIATRIC 15 S PSC MINUTES OFFICE [id number] [facility] KINGS SLAVAEDWAR 9 9 N ARIANA P T VISIT PEDIATRIC 15 S PSC MINUTES OFFICE 74734 [facility] K[facility] LUISA 9 9 N MARISELA Huerta T VISIT PEDIATRIC 25 S PSC MINUTES OFFICE 81094 [facility] ARTEMIO OUTPATIEN 9 9 N SH, LENNY N T VISIT PEDIATRIC 15 S PSC MINUTES OFFICE 87047 [facility] RUPERT LANGE 9 9 N JOHN Bradshaw VISIT PEDIATRIC S 15 S PSC MINUTES PERIODIC 10351 [facility] LLUVIA PREVENTIV 9 9 N JOHN E MED EST PEDIATRIC S PATIENT S PSC 12-17S OFFICE 68196 [place] M[place]UND BR[place] 9 9 [place] SAM Sommers ION ORTHOPAED NEW/ESTAB ICS PLC PATIENT 60 MIN HOSPITAL [facility] - 9 9 N [facility] OFF[facility] 27832 [facility] ARTEMIO OUTPATIEN 9 9 N SH, LENNY N T VISIT PEDIATRIC 15 S PSC MINUTES HOSPITAL [facility] - 9 9 N [facility] OFF[facility] 81395 [facility] OUTPATIEN 9 9 DARION ORLANDO T VISIT S S 25 MINUTES [facility] 9 [facility] CASEY - 9 9 [facility] T OFFICE 39385 RONI LANGE, OUTPATIEN 9 9 N JOHN T VISIT PEDIATRIC S 15 S PSC MINUTES OFFICE 60836 CHRISTIANCarlos Alberto QUACKENBU OUTPATIEN 9 9 N SH, LENNY N T VISIT PEDIATRIC 15 S PSC MINUTES OFFICE 93365 [facility] QUACKENBU OUTPATIEN 8 8 N SH, LENNY N T VISIT PEDIATRIC 15 S PSC MINUTES OFFICE 93525 CHRISTIANMONROE QUACKENBU OUTPATIEN 8 8 N SH, LENNY N T VISIT PEDIATRIC 15 S PSC MINUTES OFFICE 36748 CHRISTIANCarlos Alberto KINGS OUTPATIEN 8 8 N ARIANA P T VISIT PEDIATRIC 15 S PSC MINUTES OFFICE 00331 [facility] LANGE, OUTPATIEN 8 8 N JOHN T VISIT PEDIATRIC S 15 S PSC MINUTES PERIODIC 19077 RONI AUGUSTEKE, PREVENTIV 8 8 N KELLI Pinedo E MED EST PEDIATRIC PATIENT S PSC 12-17YRS OFFICE 33986 RONI AUGUSTEKE, OUTPATIEN 8 8 N KELLI K T VISIT PEDIATRIC 25 S PSC MINUTES OFFICE 79793 CHRISTIANCarlos Alberto LLUVIA, OUTPATIEN 8 8 N JOHN T VISIT PEDIATRIC S 15 S PSC MINUTES OFFICE 68285 CHRISTIANCarlos Alberto LLUVIA, OUTPATIEN 8 8 N JOHN T VISIT PEDIATRIC S 15 S PSC MINUTES OFFICE 26762 RONI LLUVIA, OUTPATIEN 8 8 N JOHN T VISIT PEDIATRIC S 15 S PSC MINUTES OFFICE 20556 CHRISTIANCarlos Alberto VIKKIACKENBU OUTPATIEN 8 8 N SH, LENNY N T VISIT PEDIATRIC 15 S PSC MINUTES
--- OUTSIDE RECORDS SUMMARY | 2017-05-16 03:44 | External Medical Summary Rpt | CCD ---
Author Author , DIAZ PERALES Address Unknown Phone [email or web address] Care Team Providers Care Cataract Lens Generator Name Role Phone [facility] Unavailable [facility]available [facility], [facility], [facility], Unavailable Unavailable [facility] CHAVA BRE, CHAVA Unavailable Unavailable BRE [facility] Unavailable Unavailable [facility], Unavailable Unavailable [id number], Unavailable Unavailable [id number], [facility] Unavailable Unavailable [facility], [facility] Unavailable Unavailable DUDEE CORBIN, DUDEE CORBIN Unavailable Unavailable DUDEE CORBIN, DUDEE CORBIN Unavailable Unavailable DUDEE JITANDER S, Unavailable Unavailable DUDEE, JITANDER S Alla PENG, Alla PENG Unavailable Unavailable T MACEY LOPEZ Unavailable Unavailable ALEC NORIEGA Unavailable Unavailable [facility] Unavailable Unavailable [facility] Unavailable Unavailable [facility], [facility] Unavailable Unavailable [facility], [facility] GRABMAYER MASON, Unavailable Unavailable GRABMAYER MASON KINGS MAJANO, Unavailable Unavailable ARIANA YOUNG, Unavailable Unavailable ARIANA KU HODDY SIRENA Unavailable Unavailable KATHIE PACK, KATHIE SIRENA Unavailable Unavailable MARISELA VÁZQUEZ, Unavailable Unavailable MARISELA VÁZQUEZ [facility] [employer] [facility] Unavailable Unavailable INC, [facility] Unavailable Unavailable HOLDINGS, [facility], Unavailable Unavailable [facility] & Unavailable Unavailable [facility] VIPUL KRI, VIPUL KRI Unavailable Unavailable VIPUL KRI, VIPUL KRI Unavailable Unavailable VIPUL, KELLI K, Unavailable Unavailable VIPUL, KELLI K LLUVIA SOTO, LLUVIA Unavailable Unavailable CHARLES LLUVIA CHARLES, LLUVIA [...] Unavailable LANE DEBRA, Unavailable Unavailable LANE [facility] HEDY QURESHI, Unavailable Unavailable HEDY QURESHI SWEIGART LAC, Unavailable Unavailable SWEIGART LAC SWEIGART LAC, Unavailable Unavailable SWEIGART LAC SAVANAH NANNETTE, SAVANAH NANNETTE Unavailable Unavailable SAVANAH NANNETTE, SAVANAH NANNETTE Unavailable Unavailable [facility], Unavailable Unavailable [facility] Unavailable Unavailable #493, [facility] # Unavailable Unavailable [id number], [facility] # [id number] [phone], Unavailable Unavailable [phone] SAM BRIDGES, Unavailable Unavailable SAM BRIDGES Purpose Continuity of Care Document - 08-10-2007 through 2016 Problems Code Diagnosis DOS Provider Status 74139 GENERALIZED 03-13-2014 [facility] DISORDER PSC 7061 OTHER ACNE 03-06-2014 [facility] PSC 7821 RASH AND 03-06-2014 [facility] OTHER PEDIATRICS NONSPECIFIC PSC SKIN ERUPTION V700 ROUTINE 12-26-2013 [facility] MEDICAL PSC EXAM@HEALTH CARE FACL 37995 OTOGENIC 11-23-2013 SWEIGART PAIN LAC 460 ACUTE 11-23-2013 S[facility] NASOPHARYNG LAC ITIS 5362 PERSISTENT 11-23-2013 S[facility] VOMITING LAC 80859 NAUSEA 11-23-2013 SWEIGART ALONE LAC 4658 ACUTE URIS 10-17-2013 FREDDY OF OTHER LENNY MULTIPLE SITES 7862 COUGH 10-17-2013 FREDDY LENNY 9210 BLACK EYE, 09-12-2013 MONTES NOT KIRILL OTHERWISE SPECIFIED 3688 OTHER 09-09-2013 FR[facility] SPECIFIED LENNY VISUAL DISTURBANCE S 9181 SUPERFICIAL 09-09-2013 [facility] INJURY OF LENNY CORNEA 9189 OTHER&UNSPE 09-09-2013 FREDDY CIFIED LENNY SUPERFICIAL INJURIES OF EYE 62644 SLOW 07-31-2013 [facility] TRANSIT PEDIATRICS CONSTIPATIO [facility] N 41070 ABDOMINAL 07-31-2013 [facility] PAIN, PEDIATRICS UNSPECIFIED [facility] SITE 7830 ANOREXIA 06-22-2013 RIEBEL CHARLES 59989 ABDOMINAL 06-22-2013 RIEBDIONISIO CHARLES PAIN, GENERALIZED 74037 ACUT 05-31-2013 LLUVIA CHARLES SUPPRATV OTITIS MEDIA W/O SPONT RUP EARDRUM 47691 CHILLS 05-31-2013 LLUVIA CHARLES WITHOUT FEVER 21290 OTHER 05-31-2013 LLUVIA CHARLES MALAISE AND FATIGUE 7840 HEADACHE 05-31-2013 LLUVIA SOTO V0481 NEED 05-17-2013 ANISA SOTO PROPHYLACTI C VACCINATION &INOCULATIO N FLU 10338 SHORTNESS 05-03-2013 [facility] 05942 CHEST PAIN 05-03-2013 [facility] 53938 PRECORDIAL 04-27-2013 LLUVIA CHARLES PAIN 4618 OTHER ACUTE 03-30-2013 LLUVIA CHARLES SINUSITIS 462 ACUTE 03-30-2013 LLUVIA CHARLES PHARYNGITIS 79152 FEVER 03-30-2013 LLUVIA CHARLES UNSPECIFIED 64640 SLOWING OF 03-16-2013 LLUVIA CHARLES URINARY STREAM 6253 DYSMENORRHE 01-17-2013 SAVANAH NANNETTE A 6262 EXCESSIVE 01-17-2013 SAVANAH NANNETTE OR FREQUENT MENSTRUATIO N 6264 IRREGULAR 01-17-2013 SAVANAH NANNETTE MENSTRUAL CYCLE 34334 ONYCHIA AND 01-16-2013 RODES ARMEN PARONYCHIA OF TOE 7038 OTHER 01-16-2013 RODES ARMEN SPECIFIED DISEASE OF NAIL 7295 PAIN IN 01-16-2013 RODES ARMEN SOFT TISSUES OF LIMB 9243 CONTUSION 01-16-2013 RODES ARMEN OF TOE 89884 OTHER CHEST 11-28-2012 [facility] 43410 ABDOMINAL 11-28-2012 [facility] PA[facility], [facility] V0389 NEED PROPH 11-21-2012 VIPUL BAZAN VACC AGAINST OTH SPEC VACC V202 ROUTINE 11-21-2012 VIPUL BAZAN INFANT OR CHILD HEALTH CHECK V6545 COUNSELING 11-09-2012 SAVANAH NANNETTE OTHER SEXUALLY TRANSMITTED DISEASES 3671 MYOPIA 09-22-2012 DUDEE CORBIN 7030 INGROWING 06-28-2012 VIPUL BAZAN NAIL 0340 STREPTOCOCC 04-13-2012 LLUVIA ECHEVERRIA SORE THROAT V061 NEED PROPH 11-20-2011 VIPUL BAZAN VAC W/COMB DIPHTH-TETA NUS-PERTUSS VAC 24704 PAIN IN 11-01-2011 [facility], CR[facility]ICAL [facility] ANKLE AND HOSPITAL FOOT V4589 OTHER 11-01-2011 [facility] OTHER V571 OTHER 11-01-2011 [facility] THERAPY [facility] 6918 OTHER 10-30-2011 [facility] ATOPIC LENNY DERMATITIS AND RELATED CONDITIONS 88966 DIARRHEA 10-30-2011 FREDDY LENNY 85381 OTHER JOINT 09-22-2011 [facility], DERANGEMENT PSC NEC ANKLE AND FOOT 20317 OTHER 09-22-2011 [facility] DIS[facility], OF BONE AND PSC CARTILAGE OTHER 78137 UNSPECIFIED 07-03-2011 SAVANAH NANNETTE VAGINITIS AND VULVOVAGINI TIS 60459 ABDOMINAL 07-03-2011 SAVANAH NANNETTE PAIN RIGHT LOWER QUADRANT 12297 ABDOMINAL 07-03-2011 SAVANAH NANNETTE PAIN, LEFT LOWER QUADRANT 8360 TEAR MEDIAL 06-24-2011 [facility] CARTILAGE OR MENISCUS KNEE CURRENT 61946 OTHER SLEEP 06-17-2011 RIEBEL CHARLES DISTURBANCE S 30598 ACUTE 11-25-2010 [facility] ATOPIC PEDIATRICS CONJUNCTIVI PSC TIS 16353 ESOPHAGEAL 11-25-2010 [facility] REFLUX PEDIATRICS PSC 94178 UNSPECIFIED 08-21-2010 [facility] ACUTE [facility]EDI[facility]RICS NONSUPPURAT PSC KYLE OTITIS MEDIA 25421 OTHER JOINT 08-02-2010 [facility] DERANGEMENT PSC NEC LOWER LEG 4739 UNSPECIFIED 05-27-2010 [facility] SINUSITIS PEDIATRICS PSC 3670 HYPERMETROP 04-15-2010 [place] [address] SUPPRESSION 04-15-2010 DUDEE CORBIN OF BINOCULAR VISION 60999 CONTACT AND 04-15-2010 DUDEE CORBIN ALLERGIC DERMATITIS OF EYELID 08621 MIGRAINE 04-02-2010 [facility] UNSP W/O PEDIATRICS INTRACT W/O PSC STATUS MIGRAINOSUS 63321 OTHER 12-19-2009 [facility] CHRONIC PEDIATRICS PAIN PSC 4779 ALLERGIC 11-12-2009 [facility] RHINITIS PEDIATRICS CAUSE PSC UNSPECIFIED V059 NEED PROPH 11-12-2009 [facility] VACC&[facility] PSC UNSPEC SINGLE DZ 7242 LUMBAGO 11-04-2009 [facility] [place] [facility] 7245 UNSPECIFIED 11-04-2009 [facility] 4[facility] ACUTE URIS 10-09-2009 [facility] OF PEDIATRICS UNSPECIFIED PSC SITE 463 ACUTE 09-18-2009 [facility] TONSILLITIS PEDIATRICS PSC 69585 SPRAIN AND 07-27-2009 [facility] OF N EMERGENCY UNSPECIFIED PHYS INC SITE OF WRIST E9278 OTH 07-27-2009 [facility] OVEREXERT&S N EMERGENCY TRENUOUS&RE PHYS INC PETITIVE MVMNTS/LOAD S 7336 TIETZES 07-03-2009 [facility] DISEASE PEDIATRICS PSC 90967 OTHER 05-08-2009 [facility] INJURY OF PEDIATRICS OTHER SITES PSC OF TRUNK 4871 INFLUENZA 04-05-2009 [facility] WITH OTHER PEDIATRICS RESPIRATORY PSC MANIFESTATI ONS 92732 HYPERVENTIL 11-28-2008 [facility] ATION PEDIATRICS PSC 6260 ABSENCE OF 11-19-2008 [facility] MENSTRUATIO PEDIATRICS N PSC V054 NEED PROPH 11-02-2008 [facility] VACC&INOCUL PEDIATRICS AT AGAINST PSC VARICELLA 12440 PAIN IN 10-15-2008 [facility] [place] [facility], ORTHOPAEDIC LOWER LEG S [facility] 86559 EFFUSION OF 10-11-2008 [facility] LOWER LEG [facility] 8449 SPRAIN&STRA 02-29-2008 [facility] IN OF PEDIATRICS UNSPECIFIED PSC SITE OF KNEE&LEG 29824 UNS 10-06-2007 [facility] GASTRITIS&G PEDIATRICS ASTRODUODIT PSC IS W/O MENTION HEMORR 56589 UNSPECIFIED 10-06-2007 [facility] PEDIATRICS CONSTIPATIO PSC N 6235 LEUKORRHEA 09-16-2007 [facility] [place] [facility] SPECIFIED INFECTIVE 7010 CIRCUMSCRIB 09-16-2007 [facility] ED PEDIATRICS SCLERODERMA PSC 8441 SPRAIN AND [...] 10 UL 04 E 93 PA 00 04 04 2 2. 30 WA 70 QU Ac TA 06 -2 -2 50 L- 76 AC ti DA 50 6- 6- 0 MA 13 KE ve Y 27 20 20 RT 1 NB 0. 22 11 11 US 2% 5 PH H AR AN EY MA N E CY N DR # OP S [address] 37 04 04 1 30 30 WA 88 QU Ac IL 00 -2 -2 .0 L- 17 AC ti OS 00 6- 6- 00 MA 14 KE ve EC 45 20 20 RT 5 NB 50 11 11 US OT 4 PH H C AR AN 20 MA N .6 CY N # MG 10 TA 04 BL 93 ET TA 00 03 03 0 10 10 WA 70 [place] Ac [place] 00 -0 -0 .0 L- 68 MB [...] EA [address] 68 11 11 1 8. 2 WA [...] MG 10 04 TA [address] 64 09 09 1 30 30 WA [...] 27 20 20 RT 6 ON 09 10 10 JE E [address] AR IF OP MA ER CY S [...] ve 27 20 20 RT 5 ON 09 10 10 JE E [address] AR IF OP MA ER CY S 50 # MC 10 G 04 SP 93 RA Y 66 05 05 2 30 15 WA 70 OL Ac 99 -2 -2 .0 L- 34 IV ti 20 0- 0- 00 MA 34 ER ve 23 20 20 RT 6 56 10 10 JE 0 PH NN AR IF MA ER CY S # [address] 64 04 04 2 30 30 WA [...] 0. #4 2% 93 CR EA M BE 68 09 09 00 20 6 WA 70 BA Ac NZ 38 -0 -1 .0 L- 02 DG ti ON 20 4- 0- 00 MA 94 ER ve AT 24 20 20 RT 4 AT 80 09 09 BR E 1 PH IA 20 AR N 0 MA C MG CY CA #4 PS 93 UL E LO 00 08 09 00 30 30 CV 52 HO Ac RA 78 -2 -1 .0 S 43 DD ti TA 15 8- 0- 00 PH 51 Y ve DI 07 20 20 AR DA NE 70 09 09 MA 1 CY D 10 M #3 MG 01 6 TA BL ET 68 04 05 00 60 30 WA [...] 09 09 JE E [address] AR IF OP MA ER CY S [...] Procedure DOS Code Location Performer Comment SERVICES 51023 QUUMAIRENBU QUACKENBU PROVIDED 4 SH LENNY SH LENNY OFFICE OTH/THN REG SCHED HOURS RADEX 30744 [facility] ABDOMEN 1 3 N N [facility] ANTEROPOS HOSPITA HOSPITA TERIOR VIEW IIV3 61458 RIEBEL RIEBEL VACCINE 3 CHARLES CHARLES SPLIT VIRUS 0.5 ML DOSAGE IM USE ECG [address] ROUTINE 3 DEBRA DEBRA ECG W/LEAST 12 LDS I&R ONLY ECHO 98847 [facility] TTHRC R-T 3 Y Y 2D [facility] W/WOM-MOD E COMPL SPEC&COLR D ECG 75221 [facility] ROUTINE 3 Y Y ECG [facility] W/LEAST 12 LDS TRCG ONLY W/[place] [address] LAB SELINA LAB SELINA FREE 3 [facility] [address] LAB SELINA LAB SELINA THYROID 3 TONG TONG STIMULATI HOLDINGS HOLDINGS NG HORMONE TSH BLOOD 33953 LAB SELINA LAB SELINA COUNT 3 TONG TONG COMPLETE HOLDINGS HOLDINGS AUTO&AUTO DIFRNTL WBC SPMTRY 33915 LLUVIA LLUVIA W/VC 3 CHARLES CHARLES EXPIRATOR Y MORENA W/WO MXML VOL VNTJ IAADIADOO 87582 LL[facility]IA LLUVIA 3 CHARLES CHARLES STREPTOCO CCUS GROUP A URNLS DIP 02898 LLUVIA LLUVIA 3 CHARLES CHARLES STICK/TAB LET RGNT NON-AUTO W/O MICRSCP EXCISION 25837 RODES ARMEN RODES ARMEN NAIL 3 MATRIX PERMANENT REMOVAL COLLECTIO 54603 [facility] N VENOUS 3 N N BLOOD [facility] [place] [address] [facility] AMYLASE 3 N N [facility] [place] [address] [facility] LIPASE 3 N N [facility] HOSPITA HOSPITA BLOOD 03835 [facility] COUNT 3 N N COMPLETE [facility] AUTO&AUTO HOSPITA HOSPITA DIFRNTL WBC COMPREHEN 51241 [facility] SIVE 3 N N METABOLIC [facility] PANEL HOSPITA HOSPITA RADIOLOGI 26332 MACEY Sommers EXAM 3 GOPAL GOPAL CHEST 2 VIEWS FRONTAL&L ATERAL ECG 01046 MACEY CHOUDHURY ROUTINE 3 GOPAL GOPAL ECG W/LEAST 12 LDS I&R ONLY MCV4 82752 VIPUL KRI VIPUL KRI MENACWY 3 CONJ VACC GRPS ACYW-135 IM USE URNLS DIP 05938 QUACKENBU QUACKENBU 3 SH LENNY SH LENNY STICK/TAB LET RGNT NON-AUTO W/O MICRSCP FITTING 75238 DUDEE CORBIN DUDEE CORBIN SPECTACLE 3 S XCPT APHAKIA MONOFOCAL FRAMES V2020 DUDEE CORBIN DUDEE CORBIN PURCHASES 3 1 VISN V2103 DUDEE CORBIN DUDEE CORBIN PLANO 3 TO+/-4.00 D SPHER 0.12-2.00 D CYL EA LENS V2784 DUDEE CORBIN DUDEE CORBIN POLYCARBO 3 CHLOE OR EQUAL ANY INDEX PER LENS DETERMINA 88412 DUDEE CORBIN DUDEE CORBIN TION 3 REFRACTIV E STATE OPHTH 29444 DUDEE CORBIN DUDEE CORBIN MEDICAL 3 XM&EVAL COMPRHNSV ESTAB PT 1/> IAADIADOO 02404 VIPUL KRI VIPUL KRI 2 STREPTOCO CCUS GROUP A EXCISION 68845 RODES ARMEN RODES ARMEN NAIL 2 MATRIX PERMANENT REMOVAL IAADIADOO 08786 LLUVIA NIELSENR 2 CHARLES CHARLES STREPTOCO CCUS GROUP A AVULSION 48871 HODDY SIRENA HODDY SIRENA NAIL 2 PLATE PARTIAL/C OMPLETE SIMPLE 1 SEDIMENTA 94588 LABORATOR LABORATOR TION RATE 2 Y & Y & RBC BIODIAGNO BIODIAGNO NON-AUTOM STICS STICS ATED ANTIBODY 59931 LABORATOR LABORATOR HELICOBAC 2 Y & Y & TER BIODIAGNO BIODIAGNO PYLORI STICS STICS COLLECTIO 52423 CHAVA LARSEN N VENOUS 2 BRE BRE BLOOD VENIPUNCT URE COMPREHEN 89785 LABORATOR LABORATOR SIVE 2 Y & Y & METABOLIC BIODIAGNO BIODIAGNO PANEL STICS STICS THERAPEUT 24297 [place]/> 2 [facility] EACH 15 MIN EXERCISES THERAPEUT 40270 [place] P[place] 1/> 2 [facility] EACH 15 MIN EXERCISES THERAPEUT 04602 [place]/> 2 [facility] EACH 15 MIN EXERCISES THERAPEUT 56639 [place] [facility]/> 2 [facility] EACH 15 MIN EXERCISES THERAPEUT 26693 [place] P[place] 1/> 2 [facility] EACH 15 MIN EXERCISES TDAP 39419 VIPUL KRI VIPUL KRI VACCINE 7 2 YRS/> IM THERAPEUT 57154 [place] IC 2 [facility] S GROUP 2/> INDIVIDUA LS THERAPEUT 66493 [place] [facility] 1/> 2 [facility] EACH 15 MIN EXERCISES THERAPEUT 20288 [place] P[place] 1/> 2 [facility] EACH 15 MIN EXERCISES THERAPEUT 17622 [place] 1/> 2 [facility] EACH 15 MIN EXERCISES THERAPEUT 52450 [place] 1/> 2 [facility] EACH 15 MIN EXERCISES THERAPEUT 75338 [place] 1/> 2 [facility] EACH 15 MIN EXERCISES THERAPEUT 30613 [place] 1/> 2 [facility] EACH 15 MIN EXERCISES THERAPEUT 99651 [place] P[place] 1/> 2 [facility] EACH 15 MIN EXERCISES PHYSICAL 12236 [place] THERAPY 2 [facility] N THERAPEUT 45506 [place] P[place] 1/> 2 [facility] EACH 15 MIN EXERCISES ANES OPEN 84769 ANESTHESI GRABMAYER PROC 2 A MASON BONES ASSOCIATE LOWER S, PSC LEG/ANKLE /FOOT NOS RADEX 38665 NEW [facility]ERION-M FOOT 2 [facility] COMPLETE CLINIC Z[place] MINIMUM 3 PSC VIEWS SMR PRIM 75970 SAVANAH NANNETTE SAVANAH NANNETTE SRC WET 1 MOUNT NFCT AGT CRTCHS E0114 [employer] DJOZeePearl UNDARM 1 OTH THAN WOOD PAIR PAD TIP&HNDGR IP LIPID 32679 LABORATOR LABORATOR PANEL 1 Y & Y & BIODIAGNO BIODIAGNO STICS STICS IIV3 VACC 94296 ANISA LANGE 1 CHARLES SOTO PRESERVAT KYLE FREE 0.5 ML DOSAGE IM USE LIPOPROTE 78313 LABORATOR LABORATOR IN DIRECT 1 Y & Y & BIODIAGNO BIODIAGNO MEASUREME STICS STICS NT LDL CHOLESTER OL BLOOD 88281 LABORATOR LABORATOR COUNT 1 Y & Y & COMPLETE BIODIAGNO BIODIAGNO AUTO&AUTO [place] [address] LABORATOR LABORATOR THYROID 1 Y & Y & STIMULATI BIODIAGNO BIODIAGNO [place] [address] LABORATOR LABORATOR FREE 1 Y & Y & THYROXINE BIODIAGNO BIODIAGNO STICS STICS IAADIADOO 57566 ANISA LANGE 1 CHARLES CHARLES STREPTOCO CCUS GROUP A SERVICES 55553 ANISA LANGE PROVIDED 1 CHARLES CHARLES OFFICE OTH/THN REG SCHED HOURS IAADIADOO 10016 RONI LARSEN 1 N BRE STREPT[facility]O PEDIATRIC CCUS S PSC GROUP A SERVICES 90109 RONI KU PROVIDED 1 N HOR OFFICE PEDIATRIC OTH/THN S PSC REG SCHED HOURS IAADIADOO 67127 RONI MATTHEW KRI 0 N STREPTOCO PEDIATRIC CCUS S PSC GROUP A DETERMINA 38172 DUDEE CORBIN DUDEE CORBIN TION 0 REFRACTIV E STATE OPHTH 03396 DUDEE CORBIN DUDEE CORBIN MEDICAL 0 XM&EVAL COMPRHNSV ESTAB PT 1/> FRAMES V2020 DUDEE CORBIN DUDEE CORBIN PURCHASES 0 SPHERE V2100 DUDEE CORBIN DUDEE CORBIN SINGLE 0 VISION PLANO +/- 4.00 PER LENS SENSORMOT 18192 DUDEE CORBIN DUDEE CORBIN OR XM 0 W/CISCO CERTIFIED NETWORK ASSOCIATE EDEN OCULAR DEVIJ W/I&R SPX RX&FITG 42209 DUDEE CORBIN DUDEE CORBIN C-LENS 0 SUPVJ CRNL LENS OU XCPT APHK SEDIMENTA 57407 [facility] TION RATE 0 [facility] RBC AUTOMATED BLOOD 02369 [facility] OF COUNT 0 [facility] COMPLETE AUTO&AUTO DIFRNTL WBC ANTIBODY 59975 [facility] D[facility] HELICOBAC 0 JAMAL BERRY [facility] 61262 [facility] OF SIVE 0 [facility] METABOLIC PANEL 4VHPV 97957 [facility] LLUVIA, VACCINE 3 0 N JOHN DOSE PEDIATRIC S SCHEDULE S PSC FOR IM USE RADEX 29119 [facility] Alla [place] SPINE 0 RADIOLOGY T THORACIC 2 VIEWS IAADIADOO 38607 [facility] KATHIE, 0 N MARISELA Huerta STREPTOCO PEDIATRIC CCUS S PSC GROUP A IAADIADOO 39615 [facility] KINGS, 0 N ARIANA Davalos STREPTOCO PEDIATRIC CCUS S PSC GROUP A UPPER L3999 [facility] LIMB 9 [facility] NOT OTHERWISE SPECIFIED RADEX 49229 [facility] WRIST 9 [facility] MINIMUM 3 VIEWS APPLICATI 90533 [facility] ON SHORT 9 [facility] SPLINT FOREARM-H AND STATIC LAIV3 02682 RONI DE LA CRUZRICK, VACCINE 9 N ARIANA P LIVE FOR PEDIATRIC INTRANASA S PSC L USE SPMTRY 08534 RONI KU, W/VC 9 N ARIANA P EXPIRATOR PEDIATRIC Y MORENA S PSC W/WO MXML VOL VNTJ IAADIADOO 87658 RONI VÁZQUEZ, 9 Silver Huerta STRE[facility] PEDIATRIC CCUS S PSC GROUP A SERVICES 43165 RONI VÁZQUEZ, PROVIDED 9 N MARISELA Huerta OFFICE PEDIATRIC OTH/THN S PSC REG SCHED HOURS IAADIADOO 48132 RONI VÁZQUEZ, 9 Silver Huerta INFLUENZA PEDIATRIC S PSC IAADIADOO 00924 RONI VÁZQUEZ, 9 Silver Huerta STREPTOCO PEDIATRIC CCUS S PSC GROUP A 4VHPV 95907 RONI KU, VACCINE 3 9 N ARIANA P DOSE PEDIATRIC SCHEDULE S PSC FOR IM USE URNLS DIP 36308 RONI RIEBEL, 9 N JOHN STICK/TAB PEDIATRIC S LET RGNT S PSC NON-AUTO W/O MICRSCP 4VHPV 76332 RONI NIELSENR, VACCINE 3 9 N JOHN DOSE PEDIATRIC S SCHEDULE S PSC FOR IM USE FAWAD 73178 RONI LLUVIA, VACCINE 9 N JOHN LIVE FOR PEDIATRIC S SUBCUTANE S PSC OUS USE MRI ANY 69016 [facility] Luther WEBBERT LOWER 9 RADIOLOGY HEDY Davalos EXTREM W/O CONTRAST MATRL RADIOLOGI 58684 [facility] Matthieu WEBBER 9 RADIOLOGY HEDY Davalos EXAMINATI ON KNEE 3 VIEWS THERAPEUT 30363 [facility] IC PX 1/> [address] [place] [address] EACH 15 MIN EXERCISES E-STIM G0283 [facility] 1/> AREAS [address] [place] [address] WND CARE PART TX PLAN E-STIM G0283 [facility] 1/> [address] W[place]ARE PART [place] PLAN DETERMINA [address]3850 CAROL MEDINA, TION 9 JITANDER JITANDER REFRACTIV S S E STATE OPHTH 97870 CAROL MEDINA, MEDICAL 9 JITANDER JITANDER XM&EVAL S S COMPRHNSV ESTAB PT 1/> THERAPEUT 33153 [facility] /> 9 [facility] EACH 15 MIN EXERCISES SPHERE V2100 CAROL CAROL, SINGLE 9 JITANDER JITANDER VISION S S PLANO +/- 4.00 PER LENS PHYSICAL 45812 [facility] THERAPY 9 [facility] N SENSORMOT 48946 CAROL MEDINA, OR XM 9 JITANDER JITANDER W/CISCO CERTIFIED NETWORK ASSOCIATE S S EDEN OCULAR DEVIJ W/I&R SPX FITTING 62923 CAROL MEDINA, SPECTACLE 9 JITANDER JITANDER S XCPT S S APHAKIA MONOFOCAL FRAMES V2020 CAROL MEDINA, PURCHASES 9 JITANDER JITANDER S S LAIV3 65931 CHRISTIANCarlos Alberto LANGE, VACCINE 9 N JOHN WELLER FOR PEDIATRIC S INTRANASA S PSC L USE IAADIADOO 51700 [facility] ARTEMIO 9 N LENNY MARTÍNEZ STREPTOCO PEDIATRIC CCUS S PSC GROUP A IAADIADOO 43356 [facility] ARTEMIO 8 N LENNY MARTÍNEZ STREPTOCO PEDIATRIC CCUS S PSC GROUP A CUL BACT 53391 [facility] OF XCPT 8 [facility] URINE BLOOD/STO OL AEROBIC ISOL IAADIADOO 95065 CHRISTIANElver VELARDE STREPTOCO PEDIATRIC S CCUS S PSC GROUP A KO [id number] J & L J & L ELASTIC 8 COMPOUNDI COMPOUNDI KNEE CAP NG INC NG INC PREFAB INCLUDES FITTING&A DJ Encounters Encounter Start End Date Code Location Performer Type Date OFFICE 72318 [facility] VIPUL KRI OUTPATIEN 4 4 N T VISIT PEDIATRIC 15 S PSC MINUTES OFFICE 01307 [facility] VIPUL KRI OUTPATIEN 4 4 N T VISIT PEDIATRIC 15 S PSC MINUTES PERIODIC 70585 [facility] PREVENTIV 4 4 N CHERRY E MED EST PEDIATRIC PATIENT S PSC 18-39 YRS OFFICE 91932 SWEIGART SWEIGART OUTPATIEN 4 4 LAC LAC T VISIT 25 MINUTES OFFICE 31781 QUACKENBU QUACKENBU OUTPATIEN 4 4 SH LENNY SH LENNY T VISIT 15 MINUTES OFFICE 91185 RICHARDSO RICHARDSO OUTPATIEN 4 4 N KIRILL N KIRILL T NEW 45 MINUTES OFFICE 96907 [facility] RIEBEL OUTPATIEN 3 3 N CHARLES T VISIT PEDIATRIC 15 S PSC MINUTES [facility] - 3 3 N OUTPATIEN COUNT INCLUDES [facility] HOSPITA OFFICE 82179 RIFABYEL RIEBEL OUTPATIEN 3 3 CHARLES HCARLES T VISIT 15 MINUTES OFFICE 73940 [facility] OUTPATI[facility] 3 3 CHARLES CHARLES T VISIT 15 MINUTES HOSPITAL UNIVERSIT - 3 3 Y [facility] T OFFICE 40673 [facility] OUTPATIEN 3 3 CHARLES CHARLES T VISIT 15 MINUTES OFFICE 24289 [facility] OUTPATIEN 3 3 CHARLES CHARLES T VISIT 15 MINUTES OFFICE 04784 [facility] OUTPATIEN 3 3 CHARLES CHARLES T VISIT 15 MINUTES OFFICE 83524 VIPUL CRISTOBALI VIPUL KRI OUTPATIEN 3 3 T VISIT 25 MINUTES OFFICE 79709 SAVANAH NANNETTE SAVANAH NANNETTE OUTPATIEN 3 3 T VISIT 15 MINUTES OFFICE 44712 HODDY SIRENA HODDY SIRENA OUTPATIEN 3 3 T VISIT 15 MINUTES EMERGENCY 88722 MACEY CHOUDHURY DEPT 3 3 GOPAL GOPAL VISIT HIGH SEVERITY& THREAT [facility] - 3 3 N [facility] T HOSPITA EMERGENCY 59881 [facility] 3 3 N [facility] T VISIT HOSPITA HIGH/URGE NT SEVERITY PERIODIC 66743 VIPUL KRI VIPUL KRI PREVENTIV 3 3 E MED EST PATIENT OFFICE 85920 SAVANAH NANNETTE SAVANAH NANNETTE OUTPATIEN 3 3 T VISIT 25 MINUTES OFFICE 42363 QUACKENBU QUACKENBU OUTPATIEN 3 3 SH LENNY LENNY T VISIT 15 MINUTES OFFICE 31179 KATHIE VÁZQUEZ SIRENA OUTPATIEN 3 3 T VISIT 15 MINUTES OFFICE 75930 VIPUL KRI VIPUL KRI OUTPATIEN 2 2 T VISIT 25 MINUTES OFFICE 94514 RODES ARMEN RODES ARMEN OUTPATIEN 2 2 T NEW 10 MINUTES OFFICE 77440 [facility] OUTPATIEN 2 2 CHARLES CHARLES T VISIT 15 MINUTES OFFICE 71188 [facility] OUTPATIEN 2 2 CHARLES CHARLES T VISIT 15 MINUTES OFFICE 26108 CHAVA CHAVA OUTPATIEN 2 2 BRE BRE T VISIT 25 MINUTES PERIODIC 56399 VIPUL KRI VIPUL KRI PREVENTIV 2 2 E MED EST PATIENT S [facility] 73936 QUACKENBU QUACKENBU OUTPATIEN 2 2 SH LENNY LENNY T VISIT 15 MINUTES [facility] 66546 SAVANAH BRUNSON OUTPATIEN 1 1 T NEW 30 MINUTES OFFICE 87882 ANISA LANGE OUTPATIEN 1 1 CHARLES CHARLES T VISIT 15 MINUTES OFFICE 92157 [facility] LARSEN OUTPATI[facility] 1 1 N BRE T VISIT PEDIATRIC 15 S PSC MINUTES OFFICE 47383 [facility] QUACKENBU OUTPATIEN 1 1 N SH LENNY T VISIT PEDIATRIC 15 S PSC MINUTES PERIODIC 84544 [facility] QUACKENBU PREVENTIV 1 1 N SH LENNY E MED EST PEDIATRIC PATIENT S PSC - OFFICE 41447 [facility] TEIXEIRA OUTPATIEN 1 1 N CHARLES T VISIT PEDIATRIC 15 S PSC MINUTES OFFICE 25446 [facility] MATTHEW BENI OUTPATIEN 0 0 N T VISIT PEDIATRIC 15 S PSC MINUTES OFFICE 19731 [facility] LLUVIA OUTPATIEN 0 0 N CHARLES T VISIT PEDIATRIC 15 S PSC MINUTES OFFICE 98071 [facility] LLUVIA, OUTPATIEN 0 0 N JOHN T VISIT PEDIATRIC S 15 S PSC MINUTES PERIODIC 16502 [facility], PREVENTIV 0 0 N JOHN E MED EST PEDIATRIC S PATIENT S PSC -S OFFICE 01310 [facility] VIPUL, OUTPATIEN 0 0 N KELLI Pinedo T VISIT PEDIATRIC 15 S PSC MINUTES [facility] - 0 0 N OUTPATIEN [facility] OFFICE 42054 [facility] VÁZQUEZ OUTPATIEN 0 0 N MARISELA Huerta T VISIT PEDIATRIC 15 S PSC MINUTES OFFICE 32600 [facility] KU OUTPATIEN 0 0 N ARIANA Davalos T VISIT PEDIATRIC 15 S PSC MINUTES EMERGENCY 00052 [place] 9 9 [facility] T VISIT LOW/MODER SEVERITY [facility] 87461 [facility] 9 [facility] EMERGENCY T VISIT PHYS INC MODERATE SEVERITY OFFICE 94867 [facility] KUSLAVAPATIEN 9 9 N ARIANA P T VISIT PEDIATRIC 15 S PSC MINUTES OFFICE 24285 [facility] KINGS OUTPATIEN 9 9 N ARIANA P T VISIT PEDIATRIC 15 S PSC MINUTES OFFICE 76426 [facility] N MARISELA Huerta T VISIT PEDIATRIC 25 S PSC MINUTES OFFICE 71545 [facility] ARTEMIO OUTPATIEN 9 9 N SH, LENNY N T VISIT PEDIATRIC 15 S PSC MINUTES OFFICE 72921 [facility] ANISA [facility] 9 9 N JOHN T VISIT PEDIATRIC S 15 S PSC MINUTES PERIODIC 94354 [facility] LLUVIA, PREVENTIV 9 9 N JOHN E MED EST PEDIATRIC S PATIENT S PSC 12-S OFFICE 49538 [place] [facility] [place] 9 9 [place] SAM Sommers ION ORTHOPAED NEW/ESTAB ICS PLC PATIENT 60 MIN HOSPITAL [facility] - 9 9 N [facility] - 9 N [facility] OFFICE 06823 [facility] [place] 9 9 N SH, LENNY N T VISIT PEDIATRIC 15 S PSC MINUTES OFFICE 98510 [facility] LUISA 9 9 DARION ORLANDO T VISIT S S 25 MINUTES [facility]OS[facility] [place] - 9 9 [facility] 14321 [facility] ANISA, OUTPATIEN 9 9 N JOHN T VISIT PEDIATRIC S 15 S PSC MINUTES OFFICE 83407 CHRISTIANCarlos Alberto QUACKENBU OUTPATIEN 9 9 N SH, LENNY N T VISIT PEDIATRIC 15 S PSC MINUTES OFFICE 97572 CHRISTIANBUFFALO QUACKENBU OUTPATIEN 8 8 N SH, LENNY N T VISIT PEDIATRIC 15 S PSC MINUTES OFFICE 49249 [facility]RISTIANBUFFALO QUACKENBU OUTPATIEN 8 8 N SH, LENNY N T VISIT PEDIATRIC 15 S PSC MINUTES OFFICE 05074 CHRISTIANCarlos Alberto KU, OUTPATIEN 8 8 N ARIANA P T VISIT PEDIATRIC 15 S PSC MINUTES OFFICE 08550 CHRISTIANCarlos Alberto LANGE, OUTPATIEN 8 8 N JOHN T VISIT PEDIATRIC S 15 S PSC MINUTES PERIODIC 72352 [facility] VIPUL, PREVENTIV 8 8 N KELLI Pinedo E MED EST PEDIATRIC PATIENT S PSC 12-17YRS OFFICE 12303 CHRISTIANCarlos Alberto VIPUL, OUTPATIEN 8 8 N KELLI K T VISIT PEDIATRIC 25 S PSC MINUTES OFFICE 74586 CHRISTIANCarlos Alberto LLUVIA, OUTPATIEN 8 8 N JOHN T VISIT PEDIATRIC S 15 S PSC MINUTES OFFICE 95109 CHRISTIANCarlos Alberto LLUVIA, OUTPATIEN 8 8 N JOHN T VISIT PEDIATRIC S 15 S PSC MINUTES OFFICE 53483 CHRISTIANCarlos Alberto LLUVIA, OUTPATIEN 8 8 N JOHN T VISIT PEDIATRIC S 15 S PSC MINUTES OFFICE 92657 CHRISTIANBUFFALO VIKKIACKENBU OUTPATIEN 8 8 N SH, LENNY N T VISIT PEDIATRIC 15 S PSC MINUTES
--- OUTSIDE RECORDS SUMMARY | 2017-05-16 03:44 | External Medical Summary Rpt | CCD ---
Author Author , DIAZ PERALES Address Unknown Phone [email or web address] Care Team Providers Care Wireless Development Manager Name Role Phone ANESTHESIA Unavailable [facility]available [facility], [facility], [facility], Unavailable Unavailable [facility] CHAVA BRE, CHAVA Unavailable Unavailable BRE [facility] Unavailable Unavailable [facility], Unavailable Unavailable [facility] [...] Unavailable Unavailable ALEC NORIEGA Unavailable Unavailable [facility] Unavailable Unavailable [facility] Unavailable Unavailable [facility], [facility] Unavailable Unavailable [facility], [facility] GRABMAYER MASON, Unavailable Unavailable GRABMAYER MASON KINGS MAJANO, Unavailable Unavailable ARIANA YOUNG, Unavailable Unavailable ARIANA KU HODDY SIRENA Unavailable Unavailable KATHIE PACK, KATHIE SIRENA Unavailable Unavailable MARISELA VÁZQUEZ, Unavailable Unavailable MARISELA VÁZQUEZ [facility] Unavailable Unavailable INC, [facility] Unavailable Unavailable HOLDINGS, [facility], Unavailable Unavailable [facility]ORATORY & Unavailable Unavailable [facility], LABORATORY [...] SWEIGART LAC, Unavailable Unavailable SWEIGART LAC SAVANAH NANNETET, SAVANAH NANNETTE Unavailable Unavailable SAVANAH NANNETTE, SAVANAH NANNETTE Unavailable Unavailable [facility], Unavailable Unavailable [facility] Unavailable Unavailable #[facility], [facility] # Unavailable Unavailable [id number], [facility] # [id number] [phone], Unavailable Unavailable [phone] SAM BRIDGES, Unavailable Unavailable SAM BRIDGES Purpose Continuity of Care Document - 08-10-2007 through 2016 Problems Code Diagnosis DOS Provider Status 99852 GENERALIZED 03-13-2014 [facility] DISORDER PSC 7061 OTHER ACNE 03-06-2014 [facility] PSC 7821 RASH AND 03-06-2014 [facility] OTHER [facility]ED[facility] NONSPECIFIC PSC SKIN ERUPTION V700 ROUTINE 12-26-2013 [facility]AL [facility] MEDICAL PSC EXAM@HEALTH CARE FACL 87365 OTOGENIC 11-23-2013 [facility] PAIN LAC 460 ACUTE 11-23-2013 [facility] NASOPHARYNG LAC ITIS 5362 PERSISTENT 11-23-2013 [facility] VOMITING LAC 53705 NAUSEA 11-23-2013 [facility] ALONE LAC 4658 ACUTE URIS 10-17-2013 [facility] OF OTHER LENNY MULTIPLE SITES 7862 COUGH 10-17-2013 [facility] LENNY 9210 BLACK EYE, 09-12-2013 MONTES NOT KIRILL OTHERWISE SPECIFIED 3688 OTHER 09-09-2013 [facility] SPECIFIED LENNY VISUAL DISTURBANCE S 9181 SUPERFICIAL 09-09-2013 [facility] INJURY OF LENNY CORNEA 9189 OTHER&UNSPE 09-09-2013 [facility] CIFIED LENNY SUPERFICIAL INJURIES OF EYE 35963 SLOW 07-31-2013 [facility] TRANSIT [facility] CONSTIPATIO [facility] N 22737 ABDOMINAL 07-31-2013 [facility] PAIN, PEDIATRICS UNSPECIFIED [facility] SITE 7830 ANOREXIA 06-22-2013 RIEBEL CHARLES 64331 ABDOMINAL 06-22-2013 RIEBDIONISIO CHARLES PAIN, GENERALIZED 42268 ACUT 05-31-2013 [facility] CHARLES SUPPRATV OTITIS MEDIA W/O SPONT RUP EARDRUM 20828 CHILLS 05-31-2013 [facility] CHARLES WITHOUT FEVER 72892 OTHER 05-31-2013 [facility] CHARLES MALAISE AND FATIGUE 7840 HEADACHE 05-31-2013 [facility] SOTO V0481 NEED 05-17-2013 ANISA SOTO PROPHYLACTI C VACCINATION &INOCULATIO N FLU 77587 SHORTNESS 05-03-2013 [facility] 42276 CHEST PAIN 05-03-2013 [facility] 01969 PRECORDIAL 04-27-2013 [facility] CHARLES PAIN 4618 OTHER ACUTE 03-30-2013 [facility] CHARLES SINUSITIS 462 ACUTE 03-30-2013 [facility] CHARLES PHARYNGITIS 34093 FEVER 03-30-2013 [facility] CHARLES UNSPECIFIED 05818 SLOWING OF 03-16-2013 [facility] CHARLES URINARY STREAM 6253 DYSMENORRHE 01-17-2013 SAVANAH NANNETTE A 6262 EXCESSIVE 01-17-2013 SAVANAH NANNETTE OR FREQUENT MENSTRUATIO N 6264 IRREGULAR 01-17-2013 SAVANAH NANNETTE MENSTRUAL CYCLE 94531 ONYCHIA AND 01-16-2013 RODES ARMEN PARONYCHIA OF TOE 7038 OTHER 01-16-2013 RODES ARMEN SPECIFIED DISEASE OF NAIL 7295 PAIN IN 01-16-2013 RODES ARMEN SOFT TISSUES OF LIMB 9243 CONTUSION 01-16-2013 RODES ARMEN OF TOE 32280 OTHER CHEST 11-28-2012 [facility] 95792 ABDOMINAL 11-28-2012 [facility] V0389 NEED PROPH 11-21-2012 VIPUL BAZAN VACC AGAINST OTH SPEC VACC V202 ROUTINE 11-21-2012 VIPUL BAZAN INFANT OR CHILD HEALTH CHECK V6545 COUNSELING 11-09-2012 SAVANAH NANNETTE OTHER SEXUALLY TRANSMITTED DISEASES 3671 MYOPIA 09-22-2012 DUDE[facility] CORBIN 7030 INGROWING 06-28-2012 VIPUL BAZAN NAIL 0340 STREPTOCOCC 04-13-2012 [facility] ECHEVERRIA SORE THROAT V061 NEED PROPH 11-20-2011 VIPUL BAZAN VAC W/COMB DIPHTH-TETA NUS-PERTUSS VAC 96720 PAIN IN 11-01-2011 [facility] ANKLE AND HOSPITAL FOOT V4589 OTHER 11-01-2011 [facility] OTHER V571 OTHER 11-01-2011 [facility] THERAPY [facility] 6918 OTHER 10-30-2011 [facility] ATOPIC LENNY DERMATITIS AND RELATED CONDITIONS 13744 DIARRHEA 10-30-2011 [facility] LENNY 65099 OTHER JOINT 09-22-2011 [facility], DERANGEMENT PSC NEC ANKLE AND FOOT 38242 OTHER 09-22-2011 [facility] DISORDERS [facility], OF BONE AND PSC CARTILAGE OTHER 25952 UNSPECIFIED 07-03-2011 SAVANAH NANNETTE VAGINITIS AND VULVOVAGINI TIS 70155 ABDOMINAL 07-03-2011 SAVANAH NANNETTE PAIN RIGHT LOWER QUADRANT 44296 ABDOMINAL 07-03-2011 SAVANAH NANNETTE PAIN, LEFT LOWER QUADRANT 8360 TEAR MEDIAL 06-24-2011 [facility] CARTILAGE OR MENISCUS KNEE CURRENT 32305 OTHER SLEEP 06-17-2011 RIEBEL CHARLES DISTURBANCE S 26696 ACUTE 11-25-2010 [facility] ATOPIC [facility]ICS CONJUNCTIVI PSC TIS 03079 ESOPHAGEAL 11-25-2010 [facility] REFLUX [facility]RICS PSC 95606 UNSPECIFIED 08-21-2010 [facility] ACUTE [facility] NONSUPPURAT PSC KYLE OTITIS MEDIA 58192 OTHER JOINT 08-02-2010 [facility] DERANGEMENT PSC NEC LOWER LEG 4739 UNSPECIFIED 05-27-2010 [facility] SINUSITIS [facility]IATRICS PSC 3670 HYPERMETROP 04-15-2010 [place] [address] SUPPRESSION 04-15-2010 DUDE[facility] CORBIN OF BINOCULAR VISION 85304 CONTACT AND 04-15-2010 [facility] CORBIN ALLERGIC DERMATITIS OF EYELID 43965 MIGRAINE 04-02-2010 [facility] UNSP W/O PEDIATRICS INTRACT W/O PSC STATUS MIGRAINOSUS 70603 OTHER 12-19-2009 [facility] CHRONIC [facility] PAIN PSC 4779 ALLERGIC 11-12-2009 [facility] RHINITIS [facility]EDIATRICS CAUSE PSC UNSPECIFIED V059 NEED PROPH 11-12-2009 [facility] UNSPEC SINGLE DZ 7242 LUMBAGO 11-04-2009 [facility] [place] [facility] 7245 UNSPECIFIED 11-04-2009 [facility] 4659 ACUTE URIS 10-09-2009 [facility] OF PEDIATRICS UNSPECIFIED PSC SITE 463 ACUTE 09-18-2009 [facility] TONSILLITIS PEDIATRICS PSC 82486 SPRAIN AND 07-27-2009 [facility] OF N EMERGENCY UNSPECIFIED PHYS INC SITE OF WRIST E9278 OTH 07-27-2009 [facility] OVEREXERT&S N EMERGENCY TRENUOUS&RE PHYS INC PETITIVE MVMNTS/LOAD S 7336 TIETZES 07-03-2009 [facility] DISEASE [facility]ATRICS PSC 72145 OTHER 05-08-2009 [facility] INJURY OF PEDIATRICS OTHER SITES PSC OF TRUNK 4871 INFLUENZA 04-05-2009 [facility] WITH OTHER PEDIATRICS RESPIRATORY PSC MANIFESTATI ONS 93771 HYPERVENTIL 11-28-2008 [facility] ATION [facility]EDIATRICS PSC 6260 ABSENCE OF 11-19-2008 [facility] MENSTRUATIO PEDIATRICS N PSC V054 NEED PROPH 11-02-2008 [facility] VACC&INOCUL PEDIATRICS AT AGAINST PSC VARICELLA 00656 PAIN IN 10-15-2008 [facility] [place] [facility]INT, ORTHOPAEDIC LOWER LEG S PLC 78596 EFFUSION OF 10-11-2008 [facility] LOWER LEG [facility]449 SPRAIN&STRA 02-29-2008 [facility] IN OF PEDIATRICS UNSPECIFIED PSC SITE OF KNEE&LEG 19248 UNS 10-06-2007 [facility] GASTRITIS&G PEDIATRICS ASTRODUODIT PSC IS W/O MENTION HEMORR 12690 UNSPECIFIED 10-06-2007 [facility] CONSTIPATIO PSC N 6235 LEUKORRHEA 09-16-2007 [facility] NOT [facility] SPECIFIED INFECTIVE 7010 CIRCUMSCRIB 09-16-2007 [facility] ED [facility] SCLERODERMA PSC 8441 SPRAIN AND [...] DR # OP S 10 04 93 [place] 37 04 04 1 30 30 WA [...] 0 10 10 WA 70 [place] Ac [place] 00 -0 -0 .0 L- 68 MB [...] EA [address] 93 OP [place] 68 11 11 1 8. 2 WA [...] MG 10 04 TA 93 BL ET [place] 64 09 09 1 30 30 WA [...] 10 10 JE E 9 PH NN IL AR IF OP MA ER CY S [...] 10 10 JE E 9 PH NN IL AR IF OP MA ER CY S [...] ER CY S # 10 04 93 [place] 64 04 04 2 30 30 WA [...] 09 09 JE E 9 PH NN IL AR IF OP MA ER CY S [...] Procedure DOS Code Location Performer Comment SERVICES 57220 QUUMAIRENBU QUACKENBU PROVIDED 4 SH LENNY SH LENNY OFFICE OTH/THN REG SCHED HOURS RADEX 78393 [facility] ABDOMEN 1 3 N N [facility] ANTEROPOS HOSPITA HOSPITA TERIOR VIEW IIV3 27827 RIEBEL RIEBEL VACCINE 3 CHARLES CHARLES SPLIT VIRUS 0.5 ML DOSAGE IM USE ECG [address] ROUTINE 3 DEBRA DEBRA ECG W/LEAST 12 LDS I&R ONLY ECHO 01054 [facility] TTHRC R-T 3 Y Y 2D [facility] W/WOM-MOD E COMPL SPEC&COLR D ECG 42188 [facility] ROUTINE 3 Y Y ECG [facility] W/LEAST 12 LDS TRCG ONLY W/[place] [address] LAB SELINA LAB SELINA FREE 3 TONG [place] [address] LAB SELINA LAB SELINA THYROID 3 TONG TONG STIMULATI HOLDINGS HOLDINGS NG HORMONE TSH BLOOD 07113 LAB SELINA LAB SELINA COUNT 3 TONG TONG COMPLETE HOLDINGS HOLDINGS AUTO&AUTO DIFRNTL WBC SPMTRY 82359 [facility] W/VC 3 CHARLES CHARLES EXPIRATOR Y MORENA W/WO MXML VOL VNTJ IAADIADOO 40728 [facility] LL[facility]IA 3 CHARLES CHARLES STREPTOCO CCUS GROUP A URNLS DIP 55888 LL[facility] LLUVIA 3 CHARLES CHARLES STICK/TAB LET RGNT NON-AUTO W/O MICRSCP EXCISION 12305 RODES ARMEN RODES ARMEN NAIL 3 MATRIX PERMANENT REMOVAL COLLECTIO 84994 [facility] N VENOUS 3 N N BLOOD [facility] VENIPUN[place] [address] [facility] AMYLASE 3 N N [facility] [place] [address] [facility] LIPASE 3 N N [facility] HOSPITA HOSPITA BLOOD 59055 [facility] COUNT 3 N N COMPLETE [facility] AUTO&AUTO HOSPITA HOSPITA DIFRNTL WBC COMPREHEN 47765 [facility] SIVE 3 N N METABOLIC [facility] PANEL HOSPITA HOSPITA RADIOLOGI 79839 MACEY Sommers EXAM 3 GOPAL GOPAL CHEST 2 VIEWS FRONTAL&L ATERAL ECG 01451 MACEY CHOUDHURY ROUTINE 3 GOPAL GOPAL ECG W/LEAST 12 LDS I&R ONLY MCV4 45537 VIPUL KRI VIPUL KRI MENACWY 3 CONJ VACC GRPS ACYW-135 IM USE URNLS DIP 99851 QUACKENBU QUACKENBU 3 SH LENNY SH LENNY STICK/TAB LET RGNT NON-AUTO W/O MICRSCP FITTING 12658 DUDEE CORBIN DUDEE CORBIN SPECTACLE 3 S XCPT APHAKIA MONOFOCAL FRAMES V2020 DUDEE CORBIN DUDEE CORIBN PURCHASES 3 1 VISN V2103 DU[facility] CORBIN DUDEE CORBIN PLANO 3 TO+/-4.00 D SPHER 0.12-2.00 D CYL EA LENS V2784 DUDEE CORBIN DUDEE CORBIN POLYCARBO 3 CHLOE OR EQUAL ANY INDEX PER LENS DETERMINA 93908 DUDEE CORBIN DUDEE CORBIN TION 3 REFRACTIV E STATE OPHTH 74297 DUDEE CORBIN DUDEE CORBIN MEDICAL 3 XM&EVAL COMPRHNSV ESTAB PT 1/> IAADIADOO 52027 VIPUL KRI VIPUL KRI 2 STREPTOCO CCUS GROUP A EXCISION 55233 RODES ARMEN RODES ARMEN NAIL 2 MATRIX PERMANENT REMOVAL IAADIADOO 11346 [facility] NIELSENR 2 CHARLES CHARLES STREPTOCO CCUS GROUP A AVULSION 80693 HODDY SIRENA HODDY SIRENA NAIL 2 PLATE PARTIAL/C OMPLETE SIMPLE 1 SEDIMENTA 16268 LABORATOR LABORATOR TION RATE 2 Y & Y & RBC BIODIAGNO BIODIAGNO NON-AUTOM STICS STICS ATED ANTIBODY 09405 LABORATOR LABORATOR HELICOBAC 2 Y & Y & TER BIODIAGNO BIODIAGNO PYLORI STICS STICS COLLECTIO 16259 CHAVA LARSEN N VENOUS 2 BRE BRE BLOOD VENIPUNCT URE COMPREHEN 31511 LABORATOR LABORATOR SIVE 2 Y & Y & METABOLIC BIODIAGNO BIODIAGNO PANEL STICS STICS THERAPEUT 33099 [place]/> 2 [facility] EACH 15 MIN EXERCISES THERAPEUT 33471 [place]/> 2 [facility] EACH 15 MIN EXERCISES THERAPEUT 75336 [place] PX 1/> 2 [facility] EACH 15 MIN EXERCISES THERAPEUT 52445 [place] 1/> 2 [facility] EACH 15 MIN EXERCISES THERAPEUT 06768 [place] PX 1/> 2 [facility] EACH 15 MIN EXERCISES TDAP 26728 VIPUL KRI VIPUL KRI VACCINE 7 2 YRS/> IM THERAPEUT 08850 [place] IC 2 [facility] S GROUP 2/> INDIVIDUA LS THERAPEUT 26729 [place] P[place] 1/> 2 [facility] EACH 15 MIN EXERCISES THERAPEUT 07282 [place] PX 1/> 2 [facility] EACH 15 MIN EXERCISES THERAPEUT 55883 [place] P[place] 1/> 2 [facility] EACH 15 MIN EXERCISES THERAPEUT 48735 [place] 1/> 2 [facility] EACH 15 MIN EXERCISES THERAPEUT 58795 [place] PX 1/> 2 [facility] EACH 15 MIN EXERCISES THERAPEUT 04999 [place] P[place] 1/> 2 [facility] EACH 15 MIN EXERCISES THERAPEUT 24585 [place] P[place] 1/> 2 [facility] EACH 15 MIN EXERCISES PHYSICAL 65194 [place] THERAPY 2 [facility] N THERAPEUT 16762 [place] PX 1/> 2 [facility] EACH 15 MIN EXERCISES ANES OPEN 99575 ANESTHESI GRABMAYER PROC 2 A [place]ON BONES ASSOCIATE LOWER S, PSC LEG/ANKLE /FOOT NOS RADEX 48202 NEW [facility]ERION-M FOOT 2 [facility] COMPLETE [facility]INIC [place] MINIMUM 3 PSC VIEWS SMR PRIM 81612 SAVANAH NANNETTE SAVANAH NANNETTE SRC WET 1 MOUNT NFCT AGT CRTCHS E0114 DJO, [place] [employer] (P) DJOVisiogen UNDARM 1 OTH THAN WOOD PAIR PAD TIP&HNDGR IP LIPID 95919 LABORATOR LABORATOR PANEL 1 Y & Y & BIODIAGNO BIODIAGNO STICS STICS IIV3 VACC 89945 ANISA LANGE 1 CHARLES SOTO PRESERVAT KYLE FREE 0.5 ML DOSAGE IM USE LIPOPROTE 69902 LABORATOR LABORATOR IN DIRECT 1 Y & Y & BIODIAGNO BIODIAGNO MEASUREME STICS STICS NT LDL CHOLESTER OL BLOOD 71922 LABORATOR LABORATOR COUNT 1 Y & Y & COMPLETE BIODIAGNO BIODIAGNO AUTO&AUTO [place] [address] LABORATOR LABORATOR THYROID 1 Y & Y & STIMULATI BIODIAGNO BIODIAGNO [place] [address] LABORATOR LABORATOR FREE 1 Y & Y & THYROXINE BIODIAGNO BIODIAGNO STICS STICS IAADIADOO 03598 ANISA LANGE 1 CHARLES CHARLES STREPTOCO CCUS GROUP A SERVICES 44241 ANISA LANGE PROVIDED 1 CHARLES CHARLES OFFICE OTH/THN REG SCHED HOURS IAADIADOO 29008 RONI LARSEN 1 N BRE STREPTOCO PEDIATRIC CCUS S PSC GROUP A SERVICES 27779 RONI KU PROVIDED 1 N HOR OFFICE PEDIATRIC OTH/THN S PSC REG SCHED HOURS IAADIADOO 64345 RONI MATTHEW KRI 0 N STREPTOCO PEDIATRIC CCUS S PSC GROUP A DETERMINA 41252 DUDEE CORBIN DUDEE CORBIN TION 0 REFRACTIV E STATE OPHTH 53780 DUDEE CORBIN DUDEE CORBIN MEDICAL 0 XM&EVAL COMPRHNSV ESTAB PT 1/> FRAMES V2020 DU[facility] CORBIN DUDEE CORBIN PURCHASES 0 SPHERE V2100 [facility] CORBIN DUDEE CORBIN SINGLE 0 VISION PLANO +/- 4.00 PER LENS SENSORMOT 35182 DUDEE CORBIN DUDEE CORBIN OR XM 0 W/ENGINEER SOILS EDEN OCULAR DEVIJ W/I&R SPX RX&FITG 78291 DU[facility] CORBIN [facility]E CORBIN C-LENS 0 SUPVJ CRNL LENS OU XCPT APHK SEDIMENTA 86302 [facility] TION RATE 0 [facility] RBC AUTOMATED BLOOD 09686 [facility] COUNT 0 [facility] COMPLETE AUTO&AUTO DIFRNTL WBC ANTIBODY 94177 [facility] DIEGO HELICOBAC 0 JAMAL BERRY [facility] CARMEL 92045 [facility] SIVE 0 [facility] METABOLIC PANEL 4VHPV 06889 [facility] LLUVIA, VACCINE 3 0 N JOHN DOSE PEDIATRIC S SCHEDULE S PSC FOR IM USE RADEX 28422 [facility] [place] SPINE 0 RADIOLOGY T THORACIC 2 VIEWS IAADIADOO 50040 [facility] KATHIE, 0 N MARISELA Huerta STREPT[facility]O PEDIATRIC CCUS S PSC GROUP A IAADIADOO 41327 [facility] KINGS, 0 N ARIANA Davalos STREPT[facility]O PEDIATRIC CCUS S PSC GROUP A UPPER L3999 [facility] LIMB [address] [facility] NOT OTHERWISE SPECIFIED RADEX 56086 [facility] WRIST 9 [facility] MIN[facility]UM 3 VIEWS APPLICATI 00436 [facility] ON SHORT 9 [facility] SPLINT FOREARM-H AND STATIC LAIV3 28794 RONI DE LA CRUZRICK, VACCINE 9 N ARIANA P LIVE FOR PEDIATRIC INTRANASA S PSC L USE SPMTRY 93542 RONI KU, W/VC 9 N ARIANA P EXPIRATOR PEDIATRIC Y MORENA S PSC W/WO MXML VOL VNTJ IAADIADOO 86034 RONI VÁZQUEZ, 9 Silver Huerta STRE[facility] PEDIATRIC CCUS S PSC GROUP A SERVICES 94232 RONI VÁZQUEZ, PROVIDED 9 N MARISELA Huerta OFFICE PEDIATRIC OTH/THN S PSC REG SCHED HOURS IAADIADOO 92674 RONI VÁZQUEZ, 9 Silver Huerta INFLUENZA PEDIATRIC S PSC IAADIADOO 48691 RONI VÁZQUEZ, 9 Silver Huerta STREPTOCO PEDIATRIC CCUS S PSC GROUP A 4VHPV 92717 RONI KU, VACCINE 3 9 N ARIANA P DOSE PEDIATRIC SCHEDULE S PSC FOR IM USE URNLS DIP 00248 RONI RIEBEL, 9 N JOHN STICK/TAB PEDIATRIC S LET RGNT S PSC NON-AUTO W/O MICRSCP 4VHPV 87828 RONI NIELSENR, VACCINE 3 9 N JOHN DOSE PEDIATRIC S SCHEDULE S PSC FOR IM USE FAWAD 72297 RONI LLUVIA, VACCINE 9 N JOHN LIVE FOR PEDIATRIC S SUBCUTANE S PSC OUS USE MRI ANY 68291 [facility] Luther WEBBERT LOWER 9 RADIOLOGY HEDY Davalos EXTREM W/O CONTRAST MATRL RADIOLOGI 72336 [facility] Matthieu WEBBER 9 RADIOLOGY HEDY Davalos EXAMINATI ON KNEE 3 VIEWS THERAPEUT 89567 [facility] IC PX 1/> [address] [place] [address] EACH 15 MIN EXERCISES E-STIM G0283 [facility] 1/> AREAS [address] [place] [address] WND CARE PART TX PLAN E-STIM G0283 [facility] 1/> [address] WND CARE PART [place] PLAN DETERMINA 21752 CAROL MEDINA, TION 9 JITANDER JITANDER REFRACTIV S S E STATE OPHTH 20165 CAROL MEDINA, MEDICAL 9 JITANDER JITANDER XM&EVAL S S COMPRHNSV ESTAB PT 1/> THERAPEUT 38572 [place] /> 9 [facility] EACH 15 MIN EXERCISES SPHERE V2100 CAROL CAROL, SINGLE 9 JITANDER JITANDER VISION S S PLANO +/- 4.00 PER LENS PHYSICAL 91325 [facility] TH[facility]APY 9 [facility] N SENSORMOT 16492 CAROL MEDINA, OR XM 9 JITANDER JITANDER W/ENGINEER SOILS S S EDEN OCULAR DEVIJ W/I&R SPX FITTING 33131 CAROL MEDINA, SPECTACLE 9 JITANDER JITANDER S XCPT S S APHAKIA MONOFOCAL FRAMES V2020 CAROL MEDINA, PURCHASES 9 JITANDER JITANDER S S LAIV3 02588 CHRISTIANCarlos Alberto LANGE, VACCINE 9 N JOHN WELLER FOR PEDIATRIC S INTRANASA S PSC L USE IAADIADOO 53005 [facility] ARTEMIO 9 N LENNY MARTÍNEZ STREPTOCO PEDIATRIC CCUS S PSC GROUP A IAADIADOO 21661 [facility] ARTEMIO 8 N LENNY MARTÍNEZ STREPTOCO PEDIATRIC CCUS S PSC GROUP A CUL BACT 11482 [facility] OF XCPT 8 [facility] URINE BLOOD/STO OL AEROBIC ISOL IAADIADOO 46639 CHRISTIANElver VELARDE STREPTOCO PEDIATRIC S CCUS S PSC GROUP A KO L1825 J & L J & L ELASTIC 8 COMPOUNDI COMPOUNDI KNEE CAP NG INC NG INC PREFAB INCLUDES FITTING&A DJ Encounters Encounter Start End Date Code Location Performer Type Date OFFICE 10887 [facility] VIPUL KRI OUTPATIEN 4 4 N T VISIT PEDIATRIC 15 S PSC MINUTES OFFICE 71353 [facility] VIPUL KRI OUTPATIEN 4 4 N T VISIT PEDIATRIC 15 S PSC MINUTES PERIODIC 49672 [facility] 4 4 N CHERRY E MED EST PEDIATRIC PATIENT S PSC 18-39 YRS OFFICE 20514 [facility] SWEIGART OUTPATIEN 4 4 LAC LAC T VISIT 25 MINUTES OFFICE 75698 QUACKENBU QUACKENBU OUTPATIEN 4 4 SH LENNY SH LENNY T VISIT 15 MINUTES OFFICE 53338 RICHARDSO RICHARDSO OUTPATIEN 4 4 N KIRILL N KIRILL T NEW 45 MINUTES OFFICE 16862 [facility] RIEBEL OUTPATIEN 3 3 N CHARLES T VISIT PEDIATRIC 15 S PSC MINUTES [facility] - 3 3 N OUTPATIEN [facility] HOSPITA OFFICE 85757 RIFABYEL RIEBEL OUTPATIEN 3 3 CHARLES CHARLES T VISIT 15 MINUTES OFFICE 03218 [facility] OUTPATIEN 3 3 CHARLES CHARLES T VISIT 15 MINUTES [facility]OS[facility] 53912 [facility] OUTPATIEN 3 3 CHARLES CHARLES T VISIT 15 MINUTES OFFICE 11242 [facility] OUTPATIEN 3 3 CHARLES CHARLES T VISIT 15 MINUTES OFFICE 75730 [facility] 3 3 CHARLES CHARLES T VISIT 15 MINUTES OFFICE 27353 VIPUL CRISTOBALI VIPUL KRI OUTPATIEN 3 3 T VISIT 25 MINUTES OFFICE 12121 SAVANAH NANNETTE SAVANAH NANNETTE OUTPATIEN 3 3 T VISIT 15 MINUTES OFFICE 20119 HODDY SIRENA HODDY SIRENA OUTPATIEN 3 3 T VISIT 15 MINUTES EMERGENCY 12480 MACEY CHOUDHURY DEPT 3 3 GOPAL GOPAL VISIT HIGH SEVERITY& THREAT [facility] - [address] [facility] T HOSPITA EMERGENCY 10296 [facility] 3 3 N [facility] T VISIT HOSPITA HIGH/URGE NT SEVERITY PERIODIC 55983 VIPUL KRI VIPUL KRI PREVENTIV 3 3 E MED EST PATIENT OFFICE 81518 SAVANAH NANNETTE SVAANAH NANNETTE OUTPATIEN 3 3 T VISIT 25 MINUTES OFFICE 29863 QUACKENBU QUACKENBU OUTPATIEN 3 3 SH LENNY LENNY T VISIT 15 MINUTES OFFICE 16387 KATHIE VÁZQUEZ SIRENA OUTPATIEN 3 3 T VISIT 15 MINUTES OFFICE 31349 VIPUL KRI VIPUL KRI OUTPATIEN 2 2 T VISIT 25 MINUTES OFFICE 36193 RODES ARMEN RODES ARMEN OUTPATIEN 2 2 T NEW 10 MINUTES OFFICE 55566 [facility] 2 2 CHARLES CHARLES T VISIT 15 MINUTES OFFICE 21535 [facility] 2 2 CHARLES CHARLES T VISIT 15 MINUTES OFFICE 38183 CHAVA CHAVA OUTPATIEN 2 2 BRE BRE T VISIT 25 MINUTES PERIODIC 21770 VIPUL KRI VIPUL KRI PREVENTIV 2 2 E MED EST PATIENT S [facility] 2 2 [facility] T OFFICE 79222 QUACKENBU QUACKENBU OUTPATIEN 2 2 SH LENNY LENNY T VISIT 15 MINUTES [facility] 2 2 [facility] T OFFICE 50205 SAVANAH BRUNSON OUTPATIEN 1 1 T NEW 30 MINUTES OFFICE 44606 ANISA LANGE OUTPATIEN 1 1 CHARLES CHARLES T VISIT 15 MINUTES OFFICE 48088 [facility] EXPRESSCarlos Alberto LARSEN OUTPATIEN 1 1 N BRE T VISIT PEDIATRIC 15 S PSC MINUTES OFFICE 43142 [facility] QUACKENBU OUTPATIEN 1 1 N SH LENNY T VISIT PEDIATRIC 15 S PSC MINUTES PERIODIC 45949 [facility] QUACKENBU PREVENTIV 1 1 N SH LENNY E MED EST PEDIATRIC PATIENT S PSC - OFFICE 48280 [facility] ([facility]) EXPRESSCarlos Alberto TEIXEIRA OUTPATIEN 1 1 N CHARLES T VISIT PEDIATRIC 15 S PSC MINUTES OFFICE 41502 [facility] ([facility]) EXPRESSCarlos Alberto MATTHEW BENI OUTPATIEN 0 0 N T VISIT PEDIATRIC 15 S PSC MINUTES OFFICE 37189 [facility] LLUVIA OUTPATIEN 0 0 N CHARLES T VISIT PEDIATRIC 15 S PSC MINUTES OFFICE 72644 [facility]UV[facility], OUTPATIEN 0 0 N JOHN T VISIT PEDIATRIC S 15 S PSC MINUTES PERIODIC 80493 [facility]UVIA, PREVENTIV 0 0 N JOHN E MED EST PEDIATRIC S PATIENT S PSC -S OFFICE 73416 [facility] ([facility]) EXPRESSCarlos Alberto VIPUL, OUTPATIEN 0 0 N KELLI Pinedo T VISIT PEDIATRIC 15 S PSC MINUTES [facility] - 0 0 N OUTPATIEN [facility] OFFICE 56851 [facility] ([facility]) EXPRESSCarlos Alberto VÁZQUEZ OUTPATIEN 0 0 N MARISELA Huerta T VISIT PEDIATRIC 15 S PSC MINUTES OFFICE 24156 [facility] ([facility]) EXPRESSCarlos Alberto KU OUTPATIEN 0 0 N ARIANA Davalos T VISIT PEDIATRIC 15 S PSC MINUTES EMERGENCY 38717 [place] 9 9 [facility] T VISIT LOW/MODER SEVERITY [facility] 9 [facility] T EMERGENCY 24702 [facility] 9 9 [facility]as [facility] EMERGENCY T VISIT PHYS INC MODERATE SEVERITY OFFICE 61025 [facility] ([facility]) EXPRESSCarlos Alberto KUSLAVAPATIEN 9 9 N ARIANA P T VISIT PEDIATRIC 15 S PSC MINUTES OFFICE 75863 [facility] KINGS OUTPATIEN 9 9 N ARIANA P T VISIT PEDIATRIC 15 S PSC MINUTES OFFICE 40272 [facility] N MARISELA uHerta T VISIT PEDIATRIC 25 S PSC MINUTES OFFICE 74935 [facility] ARTEMIO OUTPATIEN 9 9 N SH, LENNY N T VISIT PEDIATRIC 15 S PSC MINUTES OFFICE 11230 [facility] ANISA [facility] 9 9 N JOHN T VISIT PEDIATRIC S 15 S PSC MINUTES PERIODIC 15004 [facility] LULVIA, PREVENTIV 9 9 N JOHN E MED EST PEDIATRIC S PATIENT S PSC 12-S OFFICE [id number] [place] M[place] 9 9 [place] SAM Sommers ION ORTHOPAED NEW/ESTAB ICS [facility] PATIENT 60 MIN [facility] - 9 9 N [facility] - 9 N [facility] OFFICE 72149 [facility] 9 9 N SH, LENNY N T VISIT PEDIATRIC 15 S PSC MINUTES OFFICE 06015 [facility] 9 9 DARION [place] T VISIT S S 25 MINUTES [facility] [address] [facility] 9 [facility] T OFFICE 90515 [facility] ANISA, OUTPATIEN 9 9 N JOHN T VISIT PEDIATRIC S 15 S PSC MINUTES OFFICE 44960 [facility] QUACKENBU OUTPATIEN 9 9 N SH, LENNY N T VISIT PEDIATRIC 15 S PSC MINUTES OFFICE 36127 [facility] 8 8 N SH, LENNY N T VISIT PEDIATRIC 15 S PSC MINUTES OFFICE 90539 [facility] OUTPATI[facility] 8 8 N SH, LENNY N T VISIT PEDIATRIC 15 S PSC MINUTES OFFICE 94427 [facility]arl[facility] Alberto KU, OUTPATIEN 8 8 N ARIANA P T VISIT PEDIATRIC 15 S PSC MINUTES OFFICE 46195 [facility]arl[facility] Alberto LANGE, OUTPATIEN 8 8 N JOHN T VISIT PEDIATRIC S 15 S PSC MINUTES PERIODIC 44976 [facility] EXPRESSCarlos Alberto VIPUL, PREVENTIV 8 8 N KELLI Pinedo E MED EST PEDIATRIC PATIENT S PSC 12-17YRS OFFICE 41081 [facility] VIPUL, OUTPATIEN 8 8 N KELLI K T VISIT PEDIATRIC 25 S PSC MINUTES OFFICE 85221 [facility]arl[facility] Alberto LLUVIA, OUTPATIEN 8 8 N JOHN T VISIT PEDIATRIC S 15 S PSC MINUTES OFFICE 54409 [facility]arl[facility] Alberto LLUVIA, OUTPATIEN 8 8 N JOHN T VISIT PEDIATRIC S 15 S PSC MINUTES OFFICE 58209 [facility]STI[facility]arlos Alberto LLUVIA, OUTPATIEN 8 8 N JOHN T VISIT PEDIATRIC S 15 S PSC MINUTES OFFICE 37566 [facility] VIKKIACKENBU OUTPATIEN 8 8 N SH, LENNY N T VISIT PEDIATRIC 15 S PSC MINUTES
--- OUTSIDE RECORDS SUMMARY | 2017-05-16 03:45 | External Medical Summary Rpt | CCD ---
Demographics Home Phone Preferred Language Swiss Marital Status Unknown Buddhism Affiliation Unknown Race Unknown Ethnic Group Unknown Author Author , [facility] Organization [facility] Address Unknown Phone [email or web address] Immunization Name Date Rout CVX Reac Dose Comm Prov Is Faci e tion ent ider Refu lity Give sed n Infl 10-1 140 0.5 Hist D105 No D105 uenz 6-20 mL oric 01 01 a, 13 al P-Fr Info ee rmat ion - Sour ce Unsp ecif ied MCV4 04-2 114 0.5 Hist D105 No D105 2-20 mL oric 08 02 (Men 13 al actr Info a) rmat ion - Sour ce Unsp ecif ied
--- OUTSIDE RECORDS SUMMARY | 2017-05-16 03:45 | External Medical Summary Rpt | CCD ---
Demographics Home Phone Preferred Language Jamaican Marital Status Unknown Alevism Affiliation Unknown Race Unknown Ethnic Group Unknown Author Author , [facility] Organization [facility] Address Unknown Phone [email or web address] Immunization Name Date Rout CVX Reac Dose [...]
== END 2017-05-15 15:31 | disposition home or self-care (01) ==
LOC: UTC 11:16 → ER 11:26
PROVIDERS: General Practice
DX: N30.00 Acute cystitis without hematuria (principal)